=== PATIENT | female | born 1985 | race Caucasian/White ===

== ENCOUNTER 2016-05-13 16:32 | Emergency (ER) | payer SELFPAY ==
--- NOTE | 2016-05-13 16:36 | ER Document Report ---
ED Medical Screen (RME) - General Stated Complaint: TOOTH PAIN Mode of Arrival: Ambulatory Information source: Patient Notes: pt c/o dental pain for past few weeks. Pt c/o continued dental pain. TRAVEL OUTSIDE OF THE U.S. IN LAST 30 DAYS: No - Related Data Allergies/Adverse Reactions: No Known Allergies Allergy (Verified 04/06/16 13:32) Past Medical History Renal/ Medical History: Reports: Hx Ovarian Cysts Skin Medical History: Reports Hx MRSA Psychiatric Medical History: Reports: Hx Bipolar Disorder, Hx Depression - Immunizations Hx Diphtheria, Pertussis, Tetanus Vaccination: Yes - 2009 Physical Exam - General General appearance: Appears well, Alert In distress: None
--- NOTE | 2016-05-13 17:29 | ER Document Report ---
ED Oral Problem - General Chief Complaint: Toothache Stated Complaint: TOOTH PAIN Mode of Arrival: Ambulatory Information source: Patient Notes: 31 y/o F presents to ED c/o left upper posterior dental pain over the last 3 days. Reports has decayed tooth that has intemittently caused her pain over the last year but has worsened recently. States has been seen in the Emergency Department for similar symptoms in the past but has not been able to follow-up with dental provider. Denies fever, swelling, drainage, difficulty breathing or swallowing. TRAVEL OUTSIDE OF THE U.S. IN LAST 30 DAYS: No - HPI Patient complains to provider of: Toothache Onset: Gradual Quality of pain: Achy Severity: Moderate Pain Level: 3 Associated symptoms: Dental decay, Toothache Similar symptoms previously: Yes Recently seen / treated by doctor/dentist: No - Related Data Allergies/Adverse Reactions: No Known Allergies Allergy (Verified 04/06/16 13:32) Past Medical History - General Information source: Patient - Social History Smoking Status: Current Every Day Smoker Cigarette use (# per day): Yes Chew tobacco use (# tins/day): No Frequency of alcohol use: None Drug Abuse: None Lives with: Family Family History: Arthritis, DM, Hypertension, Malignancy Patient has suicidal ideation: No Patient has homicidal ideation: No Renal/ Medical History: Reports: Hx Ovarian Cysts Skin Medical History: Reports Hx MRSA Psychiatric Medical History: Reports: Hx Bipolar Disorder, Hx Depression Surgical Hx: Negative - Immunizations Hx Diphtheria, Pertussis, Tetanus Vaccination: Yes - 2009 Review of Systems - Review of Systems Constitutional: No symptoms reported EENT: See HPI Cardiovascular: No symptoms reported Respiratory: No symptoms reported Gastrointestinal: No symptoms reported Genitourinary: No symptoms reported Female Genitourinary: No symptoms reported Musculoskeletal: No symptoms reported Skin: No symptoms reported Hematologic/Lymphatic: No symptoms reported Neurological/Psychological: No symptoms reported -: Yes All other systems reviewed and negative Physical Exam - Vital signs Vitals: Temp Pulse Resp BP Pulse Ox 98.7 F 73 21 H 122/95 H 98 05/13/16 16:35 05/13/16 16:35 05/13/16 16:35 05/13/16 16:35 05/13/16 16:35 Interpretation: Normal - General General appearance: Appears well, Alert In distress: None - HEENT Head: Normocephalic, Atraumatic Eyes: Normal Extraocular movements intact: Yes Eyelashes: Normal Pupils: PERRL Ears: Normal External canal: Normal Tympanic membrane: Normal Sinus: Normal Nasal: Normal Mouth/Lips: Caries. No: Normal, Angioedema, Dental fracture, Laceration, Lesions, Other Mucous membranes: Normal, Moist Teeth diagram: 1 - Moderate dental decay, localized tenderness to palpation and mild localized swelling without fluctuance or drainage. Pharynx: Normal. No: Blood in hypopharynx, Erythema, Exudate, Peritonsillar abscess, Post nasal drainage, Retropharyngeal abscess, Tonsillar hypertrophy, Uvular edema, Potential airway comprom., Other Neck: Normal. No: Anterior cervical chain, Posterior cervical chain, Lymphadenopathy, Meningismus, Subcutaneous emphysema - Respiratory Respiratory status: No respiratory distress Chest status: Nontender Breath sounds: Normal Chest palpation: Normal - Cardiovascular Rhythm: Regular Heart sounds: Normal auscultation Murmur: No Pulses: Normal: Radial Normal capillary refill: Yes - Neurological Neuro grossly intact: Yes Cognition: Normal Orientation: AAOx4 [place] Coma Scale Eye Opening: Spontaneous [place] Coma Scale Verbal: Oriented [place] Coma Scale Motor: Obeys Commands [place] Coma Scale Total: 15 Speech: Normal - Psychological Associated symptoms: Normal affect, Normal mood - Skin Skin Temperature: Warm Skin Moisture: Dry Skin Color: Normal Course - Re-evaluation Re-evalutation: 05/13/16 17:30 Patient hemodynamically stable, in no distress, afebrile. No abscess, trismus, Ludwigs angina, or suggestion of significant soft tissue or deep space infection at this time. Will give short course clindamycin as patient states has taken penicillin in the past for similar episodes without improvement. Patient appears stable for discharge and agrees with home care, follow-up with dental provider, and ED return precautions - Vital Signs Vital signs: Temp Pulse Resp BP Pulse Ox 98.5 F 87 20 150/85 H 97 05/13/16 17:05 05/13/16 17:05 05/13/16 17:05 05/13/16 17:05 05/13/16 17:05 Discharge - Discharge Clinical Impression: Pain, dental Condition: Stable Disposition: HOME, SELF-CARE Additional Instructions: TOOTHACHE: Your pain is due to dental decay. The tooth must be repaired in order for you to feel better. You will, therefore, be referred to a dentist. We do not have dentists on the staff at [facility]. Severe swelling or drainage around a tooth usually means a dental abscess. This also requires evaluation and treatment by the dentist, but antibiotics may be prescribed while awaiting dental treatment. You should be rechecked immediately if you develop major swelling of the face, increasing pain, a lump in the jaw or gums, headache, difficulty swallowing, or fever. Ultram Ultram is an excellent drug for pain relief. It is not a narcotic, but it works in a similar way. Ultram can take up to two hours for full effect. Although not addicting, Ultram is best avoided in patients with a history of drug abuse. Ultram should not be used with alcohol, sleeping pills, or narcotics. If you're prone to seizures, Ultram can make you more likely to have a seizure. Ultram can be hazardous when combined with MAO-inhibitor antidepressants (such as Nardil or Parnate). Be sure your doctor is aware of all medicines you are taking. Persons with severe liver or kidney disease should increase the time between doses of Ultram. Discuss this with your doctor if you're uncertain. Side effects of Ultram can include dizziness, nausea, constipation, sleepiness, and itching. (These side effects are also seen with narcotic pain medicines.) Please call your doctor if you have other disturbing effects. CLINDAMYCIN: You have been given a prescription for the antibiotic clindamycin. It is often prescribed for infections in the mouth, such as dental infections or abscesses, and for skin infections due to MRSA. It's important that you take all the medication, unless instructed otherwise by your physician. Failure to complete the entire course can result in relapse of your condition. Common side effects of antibiotics include nausea, intestinal cramping, or diarrhea. Women may develop vaginal yeast infections, and babies can get yeast (thrush) in the mouth following the use of antibiotics. Contact your physician if you develop significant side effects from this medication. Allergy to this antibiotic can result in hives, wheezing, faintness, or itching. If symptoms of allergy occur, stop the medication and call the doctor. FOLLOW-UP CARE: You have been referred for follow-up care to the dentists listed below. Call the dentists office for an appointment as you were instructed or within the next two days. If you experience worsening or a significant change in your symptoms, notify the physician immediately or return to the Emergency Department at any time for re-evaluation. [facility] [address] [place], [place] mornings, by appointment [facility] [address] [place] [address] [facility] [address] [facility] [address] [facility] (4th[facility] [address] [facility] [email or web address] [facility] [address] [place] [address] Sunday- 8:00am to 5:00 pm Will see patients from other [facility]. Charges based on income and family size and accepts Medicare, Medicaid, and Insurances Will pull molars [facility] [address] Hours of Operation 8:00 am - 4:30 pm weekdays The following dental offices accept Medicaid: [facility] Dr. Hernandez Dr. Walker Dr. Antunez Dr. Her Rustam Jameson [place], and B[place] oral surgery Dr. Verduzco ([place]) Dr. Sal ([place]) [facility] Drs. Barrientos and Brennan ([place]) Dr. Whitehead ([place]) [facility] Dr. Crespo ([place]) Drs. Hoyt and ([place]) Medicaid Care Line Prescriptions: Tramadol HCl [Ultram] 50 mg PO Q8HP PRN #10 tablet PRN Reason: Clindamycin HCl 300 mg PO Q6H #20 capsule Forms: Elevated Blood Pressure
[2016-05-13 17:43] VITALS: BP 120/69
== END 2016-05-13 17:41 | disposition home or self-care (01) ==
LOC: ER 16:32
DX: K08.89 Other specified disorders of teeth and supporting structures (principal); F17.210 Nicotine dependence, cigarettes, uncomplicated
CPT/HCPCS: 99282

== ENCOUNTER 2016-07-06 22:58 | Emergency (ER) | payer SELFPAY ==
--- NOTE | 2016-07-07 02:48 | ER Document Report ---
HPI - HPI Patient complains to provider of: left thigh pain Onset: This morning Onset/Duration: Gradual Quality of pain: Achy Pain Level: 3 Context: Patient presents emergency department with complaints of left thigh pain. She reports she was sitting at her computer smoking a bowl this morning when her thigh started hurting. She went to school and gradually the thigh pain got worse so she came to the ER tonight. She denies history of DVTs PE. Negative Homans no obvious signs of blood clot. Patient ambulates without problems. Denies fever vomiting diarrhea. Associated Symptoms: None Exacerbated by: Denies Relieved by: Denies Similar symptoms previously: No Recently seen / treated by doctor: No - REPRODUCTIVE LMP: na Reproductive: DENIES: : - DERM Skin Color: Normal Past Medical History - General Information source: Patient Last Menstrual Period: irr. pcos - Social History Smoking Status: Current Every Day Smoker Cigarette use (# per day): Yes Chew tobacco use (# tins/day): No Frequency of alcohol use: Occasional Drug Abuse: Marijuana Occupation: student Family History: Arthritis, DM, Hypertension, Malignancy Patient has suicidal ideation: No Patient has homicidal ideation: No Renal/ Medical History: Reports: Hx Ovarian Cysts. Denies: Hx Peritoneal Dialysis Skin Medical History: Reports Hx MRSA Psychiatric Medical History: Reports: Hx Bipolar Disorder, Hx Depression - Immunizations Hx Diphtheria, Pertussis, Tetanus Vaccination: Yes - 2009 Vertical Provider Document - CONSTITUTIONAL Agree With Documented VS: Yes Exam Limitations: No Limitations General Appearance: WD/WN, No Apparent Distress - INFECTION CONTROL TRAVEL OUTSIDE OF THE U.S. IN LAST 30 DAYS: No - HEENT HEENT: Atraumatic, Normocephalic - NECK Neck: Normal Inspection, Supple - RESPIRATORY Respiratory: Breath Sounds Normal, No Respiratory Distress O2 Sat by Pulse Oximetry: 97 - CARDIOVASCULAR Cardiovascular: Regular Rate - MUSCULOSKELETAL/EXTREMETIES Musculoskeletal/Extremeties: MAEW, FROM, Non-Tender - reports pain to the inner left thigh, no erythema no swelling or warmth nausea no obvious deformity, neg. homans - NEURO Level of Consciousness: Awake, Alert, Appropriate Motor/Sensory: No Motor Deficit - DERM Integumentary: Warm, Dry Adult Front & Back Diagram: 1 - c/o tenderness Course - Re-evaluation Re-evalutation: 07/07/16 03:07 She was educated on signs and symptoms of DVT. Patient instructed to take ibuprofen follow up with primary care provider return to the emergency department for further worries or concerns. - Vital Signs Vital signs: Temp Pulse Resp BP Pulse Ox 97.8 F 73 14 135/84 H 97 07/06/16 23:05 07/06/16 23:05 07/06/16 23:05 07/06/16 23:05 07/06/16 23:05 Discharge - Discharge Clinical Impression: Pain in left thigh, Elevated blood pressure reading Condition: Stable Disposition: HOME, SELF-CARE Instructions: Use of [id number]-Ifecbga Ibuprofen ([facility]) Additional Instructions: *You have been evaluated for left thigh pain *Rest/Ice/Elevate *Follow up with a primary care provider for recheck within one week *Take ibuprofen as indicated *Monitor your blood pressure. Your blood pressure was elevated today. This may be because you were anxious, in pain or because you need medication. It is important to follow up with your primary care provider for full evaluation. *Return to ED for worsening condition, changes, needs Forms: Elevated Blood Pressure
[2016-07-07 03:20] VITALS: BP 108/70
== END 2016-07-07 03:25 | disposition home or self-care (01) ==
LOC: ER 22:58
DX: M79.652 Pain in left thigh (principal); R03.0 Elevated blood-pressure reading, without diagnosis of hypertension; F17.210 Nicotine dependence, cigarettes, uncomplicated; Z86.14 Personal history of Methicillin resistant Staphylococcus aureus infection
CPT/HCPCS: 99283

== ENCOUNTER 2016-12-18 18:41 | Emergency (ER) | payer SELFPAY ==
[2016-12-18] MEDS ORDERED: PENICILLIN V POTASSIUM 500 MG TABLET PO ONE (21:33)
[2016-12-18] MEDS ORDERED: LIDOCAINE 2% VISCOUS SOLN 20 ML UDCUP PO ONE (21:33)
--- NOTE | 2016-12-18 21:39 | ER Document Report ---
ED Oral Problem - General Chief Complaint: Toothache Stated Complaint: MOUTH PAIN Time Seen by Provider: 12/18/16 20:03 Mode of Arrival: Ambulatory Information source: Patient Notes: 31-year-old female presents to ED for complaint of pain in the left upper tooth #13 when she also complains of pain in her left knee that she has been treating since she injured it about a month ago. TRAVEL OUTSIDE OF THE [place].S. IN LAST 30 DAYS: No - HPI Patient complains to provider of: Toothache Onset: Other - Was a week ago knee injury was a month ago Onset: Gradual Quality of pain: Sharp Severity: Moderate Pain Level: 3 Context: Other - Tooth infection Associated symptoms: Toothache, Other - The left knee that she injured about a month ago, no signs of infection wound is healing well Worsened by: Nothing Relieved by: Nothing Similar symptoms previously: Yes Recently seen / treated by doctor/dentist: No - Related Data Allergies/Adverse Reactions: No Known Allergies Allergy (Verified 04/06/16 13:32) Past Medical History - General Information source: Patient - Social History Smoking Status: Current Every Day Smoker Cigarette use (# per day): Yes Chew tobacco use (# tins/day): No Frequency of alcohol use: Social Drug Abuse: None Lives with: Family Family History: Arthritis, DM, Hypertension, Malignancy Patient has suicidal ideation: No Patient has homicidal ideation: No - Past Medical History Cardiac Medical History: Reports: None Pulmonary Medical History: Reports: None EENT Medical History: Reports: None Neurological Medical History: Reports: None Endocrine Medical History: Reports: None Renal/ Medical History: Reports: Hx Ovarian Cysts Malignancy Medical History: Reports: None GI Medical History: Reports: None Musculoskeltal Medical History: Reports None Skin Medical History: Reports Hx MRSA Psychiatric Medical History: Reports: Hx Bipolar Disorder, Hx Depression Traumatic Medical History: Reports: None Infectious Medical History: Reports: None Surgical Hx: Negative Past Surgical History: Reports: None - Immunizations Hx Diphtheria, Pertussis, Tetanus Vaccination: Yes - 2009 Review of Systems - Review of Systems Constitutional: No symptoms reported EENT: Dental problem Cardiovascular: No symptoms reported Respiratory: No symptoms reported Gastrointestinal: No symptoms reported Genitourinary: No symptoms reported Female Genitourinary: No symptoms reported Musculoskeletal: No symptoms reported Skin: Other - P2 left knee that has a open wound that she has been treating for about a month. She states she has been using bacitracin. She states she fell and injured this knee on the gravel outside she did not follow-up with her primary doctor and has been self treating the knee looks to be healing on its own does not need any new care. There is no signs of infection no cellulitis. Hematologic/Lymphatic: No symptoms reported Neurological/Psychological: No symptoms reported Physical Exam - Vital signs Vitals: Temp Pulse Resp BP Pulse Ox 98.2 F 89 16 127/72 H 97 12/18/16 18:46 12/18/16 18:46 12/18/16 18:46 12/18/16 18:46 12/18/16 18:46 Interpretation: Normal - General General appearance: Appears well, Alert - HEENT Head: Normocephalic, Atraumatic Eyes: Normal Pupils: PERRL Ears: Normal External canal: Normal Tympanic membrane: Normal Sinus: Normal Nasal: Normal Mouth/Lips: Caries Mucous membranes: Normal Teeth diagram: 1 - In between the 2 teeth. Mild swelling and redness to the gums. No facial swelling Pharynx: Normal Neck: Normal - Respiratory Respiratory status: No respiratory distress Chest status: Nontender Breath sounds: Normal Chest palpation: Normal - Cardiovascular Rhythm: Regular Heart sounds: Normal auscultation Murmur: No - Abdominal Inspection: Normal Distension: No distension Bowel sounds: Normal Tenderness: Nontender Organomegaly: No organomegaly - Back Back: Normal, Nontender - Extremities General upper extremity: Normal inspection, Nontender, Normal color, Normal ROM , Normal temperature General lower extremity: Normal color, Normal ROM, Normal temperature, Normal weight bearing. No: Osman's sign Knee: Tender, Laceration - A healing laceration to her left knee that she has been treating at home. She states she fell on gravel. There is no redness there is no drainage there is no signs of infection no signs of cellulitis., Pain with ROM - Neurological Neuro grossly intact: Yes Cognition: Normal Orientation: AAOx4 [place] Coma Scale Eye Opening: Spontaneous [place] Coma Scale Verbal: Oriented [place] Coma Scale Motor: Obeys Commands [place] Coma Scale Total: 15 Speech: Normal Motor strength normal: LUE, RUE, LLE, RLE Sensory: Normal - Psychological Associated symptoms: Normal affect, Normal mood - Skin Skin Temperature: Warm Skin Moisture: Dry Skin Color: Normal Course - Vital Signs Vital signs: Temp Pulse Resp BP Pulse Ox 98.7 F 78 15 97/78 L 98 12/18/16 21:44 12/18/16 21:44 12/18/16 21:44 12/18/16 21:44 12/18/16 21:44 Discharge - Discharge Clinical Impression: Pain due to dental caries Condition: Stable Disposition: HOME, SELF-CARE Additional Instructions: TOOTHACHE: Your pain is due to dental decay. The tooth must be repaired in order for you to feel better. You will, therefore, be referred to a dentist. We do not have dentists on the staff at [facility]. Severe swelling or drainage around a tooth usually means a dental abscess. This also requires evaluation and treatment by the dentist, but antibiotics may be prescribed while awaiting dental treatment. You should be rechecked immediately if you develop major swelling of the face, increasing pain, a lump in the jaw or gums, headache, difficulty swallowing, or fever. PENICILLIN V K: You have been given a prescription for Penicillin VK. Your physician has determined that this is the best antibiotic for your condition. Pen VK can be taken with meals, however more of the antibiotic gets into the bloodstream if it's taken on an empty stomach. Penicillin usually has no side effects. However, allergy to penicillins is common. If you have had an allergic reaction to any drug of the penicillin family, you should never take any other penicillin. Notify your doctor at once if you develop hives, itching, swelling, faintness, or shortness of breath. FOLLOW-UP CARE: You have been referred for follow-up care to the dentists listed below. Call the dentists office for an appointment as you were instructed or within the next two days. If you experience worsening or a significant change in your symptoms, notify the physician immediately or return to the Emergency Department at any time for re-evaluation. [facility] [address] Sunday mornings, by appointment [facility] [address] [place] [address] [facility] [address] [facility] [address] [facility] [address] [email or web address] [address] [place] [address] Sunday- 8:00am to 5:00 pm Will see patients from other [facility]. Charges based on income and family size and accepts Medicare, Medicaid, and Insurances Will pull molars [facility] [address] Hours of Operation 8:00 am - 4:30 pm weekdays The following dental offices accept Medicaid: [facility] Dr. Hernandez Dr. Walker Dr. Antunez Dr. Her Rustam Jameson, Supriya, and Bijan oral surgery Dr. Verduzco ([place]) Dr. Sal ([place]) [facility] Drs. Urbina ([place]) Dr. Whitehead ([place]) [facility] Dr. Crespo ([place]) Drs. Hoyt and ([place]) Medicaid Care Line Prescriptions: Fluconazole [Diflucan] 150 mg PO ONCE PRN #1 tablet PRN Reason: Penicillin V Potassium 500 mg PO Q6 #20 tablet Forms: Elevated Blood Pressure
[2016-12-18 21:45] VITALS: BP 97/78
== END 2016-12-18 21:45 | disposition home or self-care (01) ==
LOC: ER 18:41
DX: K02.9 Dental caries, unspecified (principal); K08.89 Other specified disorders of teeth and supporting structures; M25.562 Pain in left knee; F17.210 Nicotine dependence, cigarettes, uncomplicated
CPT/HCPCS: 99282; J3490

== ENCOUNTER 2017-01-14 12:46 | Emergency (ER) | payer SELFPAY ==
--- NOTE | 2017-01-14 14:05 | ER Document Report ---
ED Oral Problem - General Chief Complaint: Toothache Stated Complaint: TOOTHACHE Time Seen by Provider: 01/14/17 13:57 Notes: 31 yo female c/o pain to left upper tooth x 1 day. pt was seen in ED about 3wks ago for same tooth pain. treated with pcn which did help until today when the pain returned while she was eating breakfast. pt has not followed up with dental due to lack of insurance. no fever TRAVEL OUTSIDE OF THE [place] IN LAST 30 DAYS: No - HPI Patient complains to provider of: Toothache Onset: This morning Quality of pain: Achy, Sharp Associated symptoms: Toothache Worsened by: Other - eating Relieved by: Nothing Similar symptoms previously: Yes Recently seen / treated by doctor/dentist: Yes - 3 wks ago be ED - Related Data Allergies/Adverse Reactions: No Known Allergies Allergy (Verified 01/14/17 12:49) Past Medical History - General Information source: Patient - Social History Smoking Status: Current Every Day Smoker Chew tobacco use (# tins/day): No Frequency of alcohol use: Occasional Drug Abuse: None Lives with: Family Family History: Arthritis, DM, Hypertension, Malignancy Renal/ Medical History: Reports: Hx Ovarian Cysts. Denies: Hx Peritoneal Dialysis Skin Medical History: Reports Hx MRSA Psychiatric Medical History: Reports: Hx Bipolar Disorder, Hx Depression Surgical Hx: Negative - Immunizations Hx Diphtheria, Pertussis, Tetanus Vaccination: Yes - 2009 Review of Systems - Review of Systems Constitutional: No symptoms reported EENT: See HPI Cardiovascular: No symptoms reported Respiratory: No symptoms reported Gastrointestinal: No symptoms reported Genitourinary: No symptoms reported Female Genitourinary: No symptoms reported Musculoskeletal: No symptoms reported Skin: No symptoms reported Hematologic/Lymphatic: No symptoms reported Neurological/Psychological: No symptoms reported Physical Exam - Vital signs Vitals: Temp Pulse Resp BP Pulse Ox 98.1 F 87 16 129/66 H 98 01/14/17 12:50 01/14/17 12:50 01/14/17 12:50 01/14/17 12:50 01/14/17 12:50 Interpretation: Normal - General General appearance: Appears well, Alert - HEENT Head: Normocephalic, Atraumatic Eyes: Normal Pupils: PERRL Mucous membranes: Moist Teeth diagram: 1 - pain. capped tooth. + erythema and mild gingival edema noted - Respiratory Respiratory status: No respiratory distress Chest status: Nontender Breath sounds: Normal Chest palpation: Normal - Cardiovascular Rhythm: Regular Heart sounds: Normal auscultation Murmur: No - Abdominal Inspection: Normal Distension: No distension Bowel sounds: Normal Tenderness: Nontender Organomegaly: No organomegaly - Back Back: Normal, Nontender - Extremities General upper extremity: Normal inspection, Nontender, Normal color, Normal ROM , Normal temperature General lower extremity: Normal inspection, Nontender, Normal color, Normal ROM , Normal temperature, Normal weight bearing. No: Osman's sign - Neurological Neuro grossly intact: Yes Cognition: Normal Orientation: AAOx4 Otto Coma Scale Eye Opening: Spontaneous [place] Coma Scale Verbal: Oriented Otto Coma Scale Motor: Obeys Commands Columbia Coma Scale Total: 15 Speech: Normal Motor strength normal: LUE, RUE, LLE, RLE Sensory: Normal - Psychological Associated symptoms: Normal affect, Normal mood - Skin Skin Temperature: Warm Skin Moisture: Dry Skin Color: Normal Course - Re-evaluation Re-evalutation: 01/14/17 14:08 no signs of ludwigs or peritonsillar abscess. no airway compromise. no s/s sepsis. pt stable for discharge - Vital Signs Vital signs: Temp Pulse Resp BP Pulse Ox 98.1 F 87 16 129/66 H 98 01/14/17 12:50 01/14/17 12:50 01/14/17 12:50 01/14/17 12:50 01/14/17 12:50 Discharge - Discharge Clinical Impression: Pain, dental Condition: Stable Disposition: HOME, SELF-CARE Instructions: Toothache ([facility]), Antibiotic Therapy ([facility]), Ibuprofen (General) ( [facility]) Additional Instructions: Please take all medication as prescribed Follow up with dental for further evaluation and treatment Prescriptions: Amoxicillin 500 mg PO TID #21 tablet Ibuprofen [Motrin 800 Mg Tablet] 800 mg PO Q6H #20 tablet
[2017-01-14 14:29] VITALS: BP 120/67
== END 2017-01-14 14:32 | disposition home or self-care (01) ==
LOC: ER 12:46
DX: K08.9 Disorder of teeth and supporting structures, unspecified (principal); F17.200 Nicotine dependence, unspecified, uncomplicated; Z86.14 Personal history of Methicillin resistant Staphylococcus aureus infection
CPT/HCPCS: 99282

== ENCOUNTER 2017-06-19 18:57 | Emergency (ER) | payer SELFPAY ==
[2017-06-19] MEDS ORDERED: ALBUTEROL SULFATE HFA (90 MCG/PUFF) 8 GM MDI (1 MDI/ER DISP) IH ONE (19:38)
[2017-06-19] MEDS ORDERED: PREDNISONE 20 MG TABLET PO ONE (19:38)
[2017-06-19] MEDS ORDERED: AZITHROMYCIN 250 MG TABLET PO ONE (19:38)
[2017-06-19 19:45] VITALS: BP 127/67
--- NOTE | 2017-06-19 19:45 | ER Document Report ---
HPI - HPI Patient complains to provider of: cough, congestion Pain Level: 2 Context: Patient is a 32-year-old female that comes emergency department for chief complaint of 2 weeks of worsening symptoms, symptoms initially started with congestion and runny nose with postnasal drainage, she is worse now and now is coughing up clearish to whitish and brown sputum with coughing fits. She denies fever or chills, shortness of breath. She smokes. She does admit to sinus tenderness. She denies nausea or vomiting, abdominal pain, dizziness. She takes no daily medications. She denies . - EENT EENT: DENIES: Sore Throat, Ear Pain, Eye problems - CARDIOVASCULAR Cardiovascular: DENIES: Chest pain - RESPIRATORY Respiratory: REPORTS: Coughing - REPRODUCTIVE Reproductive: DENIES: : Past Medical History - General Information source: Patient - Social History Smoking Status: Current Every Day Smoker Smoking Education Provided: Yes - <3 min Drug Abuse: None Lives with: Family Family History: Arthritis, DM, Hypertension, Malignancy Patient has suicidal ideation: No Patient has homicidal ideation: No Renal/ Medical History: Reports: Hx Ovarian Cysts. Denies: Hx Peritoneal Dialysis Skin Medical History: Reports Hx MRSA Psychiatric Medical History: Reports: Hx Bipolar Disorder, Hx Depression Surgical Hx: Negative - Immunizations Hx Diphtheria, Pertussis, Tetanus Vaccination: Yes - 2009 Vertical Provider Document - CONSTITUTIONAL General Appearance: WD/WN, No Apparent Distress - INFECTION CONTROL TRAVEL OUTSIDE OF THE [place] IN LAST 30 DAYS: No - HEENT HEENT: negative: Normal ENT Exam - Mild sinus congestion, nasal congestion, tenderness over maxillary sinuses worse on the right, mild postnasal drainage with erythema of the pharynx, no swelling of the pharynx with significant oropharyngeal findings. Normal ENT exam otherwise. - NECK Neck: Normal Inspection. negative: Lymphadenopathy-Left, Lymphadenopathy-Right - RESPIRATORY Respiratory: Breath Sounds Normal, No Respiratory Distress, Other - Mild occasional congested cough, no tachypnea, labored breathing, or signs of distress O2 Sat by Pulse Oximetry: 98 - CARDIOVASCULAR Cardiovascular: Regular Rate, Regular Rhythm. negative: Tachycardia - No tachycardia on my exam - GI/ABDOMEN Gastrointestinal: Abdomen Soft, Abdomen Non-Tender - BACK Back: Normal Inspection - MUSCULOSKELETAL/EXTREMETIES Musculoskeletal/Extremeties: MAEW, FROM, Non-Tender - NEURO Level of Consciousness: Awake, Alert, Appropriate - DERM Integumentary: Warm, Dry, No Rash Course - Re-evaluation Re-evalutation: Patient with tender sinuses, congested cough, 2 weeks of illness. Consistent with bronchitis on examination and by symptoms. Treating patient for sinusitis , will provide with azithromycin to prevent development of pneumonia after discussion with patient. Discussed smoking cessation, patient will be treated with prednisone, Tessalon, albuterol, discussed follow-up and return precautions , patient states understanding and agreement. Pulse oxygen saturation 97% on room air and heart rate is 98 on my evaluation at discharge. - Vital Signs Vital signs: Temp Pulse Resp BP Pulse Ox 98.2 F 109 H 18 137/87 H 98 06/19/17 19:29 06/19/17 19:29 06/19/17 19:29 06/19/17 19:29 06/19/17 19:29 Discharge - Discharge Clinical Impression: Cough Upper respiratory infection Qualifiers: URI type: unspecified URI Qualified Code(s): J06.9 - Acute upper respiratory infection, unspecified Sinusitis Qualifiers: Sinusitis location: maxillary Chronicity: acute Recurrence: non-recurrent Qualified Code(s): J01.00 - Acute maxillary sinusitis, unspecified Condition: Stable Disposition: HOME, SELF-CARE Additional Instructions: Your examination and symptoms are consistent with bronchitis and sinusitis. Take prednisone and azithromycin as prescribed. Take Tessalon for cough, continue Tylenol PM, you can continue Mucinex. Drink plenty of fluids. Stop smoking. Use albuterol inhaler provided if needed. Your symptoms should gradually subside. Follow-up with primary care. Return if you worsen including difficulty breathing, spiking fever, vomiting, or any other concerning or worsening symptoms. Prescriptions: Benzonatate [Tessalon Perles 100 mg Capsule] 100 mg PO Q8HP PRN #20 capsule PRN Reason: Azithromycin [Zithromax 250 mg Tablet] 250 mg PO ASDIR PRN #4 tablet PRN Reason: Prednisone [Deltasone 10 mg Tablet] 10 mg PO ASDIR PRN #21 tablet PRN Reason: Forms: Smoking Cessation Education
== END 2017-06-19 19:52 | disposition home or self-care (01) ==
LOC: ER 18:57
DX: J06.9 Acute upper respiratory infection, unspecified (principal); J01.00 Acute maxillary sinusitis, unspecified; R05 Cough; R09.82 Postnasal drip; R09.81 Nasal congestion; F17.200 Nicotine dependence, unspecified, uncomplicated; Z71.6 Tobacco abuse counseling; Z86.14 Personal history of Methicillin resistant Staphylococcus aureus infection
CPT/HCPCS: 99283; J7512; J3490

== ENCOUNTER 2017-06-28 09:07 | Emergency (ER) | payer SELFPAY ==
[2017-06-28] MEDS ORDERED: NORMAL SALINE 1000 ML 1,000 ML IV ONE (10:01)
--- NOTE | 2017-06-28 10:02 | ER Document Report ---
HPI - HPI Patient complains to provider of: muscle pain Pain Level: 3 Notes: 32-year-old female presents today with complaints of bilateral thigh pain that started approximately 3 days ago with a gradual onset. States pain is 4 out of 10, cramping sensation. Patient states she feels like it is muscle pain and cramping. States she feels a numbness or tingling bilaterally to her inner thighs. Denies that this pain does radiate from her back denies any radiation of numbness or tingling down her legs. Reports she was diagnosed last week with bronchitis, was placed on a Z-Jonathan, Tessalon Perles, prednisone tapering pack, Ventolin and she took Benadryl because she was having issues sleeping. She finished his medications approximately 3 days ago. Patient states she started having the myalgias then. Patient also speculates that she has fibromyalgia, states she has never been clinically diagnosed for this because she does not have health insurance at this present time. Patient states that she has had numbness and tingling in different parts of her body for the last couple years, so she has never been evaluated formally for fibromyalgia she thinks this may be the cause of her inner thigh myalgias. Patient reports she does have a history of lower back pain, stated this was from her PCO S. Patient does smoke a pack a day for last 10 year. Patient stated she did have a few vodka drinks yesterday but does not commonly drink. Denies any trauma to thighs. Denies fevers, chills, chest pain, shortness of breath, nausea, vomiting, diarrhea, abdominal pain, hematuria,blurred vision, double vision, loss of vision, speech changes, LH, dizziness, syncope, headaches, neck pain, weakness, bowel or bladder dysfunction, saddle anesthesia, numbness/tingling/ muscle paralysis/weakness or rash - ROS Notes: REVIEW OF SYSTEMS: CONSTITUTIONAL : Denies fever, chills, or sweats. Denies recent illness. EENT: Denies eye, ear, throat, or mouth pain or symptoms. Denies nasal or sinus congestion or discharge. Denies throat, tongue, or mouth swelling or difficulty swallowing. CARDIOVASCULAR: Denies chest pain. Denies palpitations or racing or irregular heart beat. Denies ankle edema. RESPIRATORY: Denies cough, cold, or chest congestion. Denies shortness of breath, difficulty breathing, or wheezing. GASTROINTESTINAL: Denies abdominal pain or distention. Denies nausea, vomiting , or diarrhea. Denies blood in vomitus, stools, or per rectum. Denies black, tarry stools. Denies constipation. GENITOURINARY: Denies difficulty urinating, painful urination, burning, frequency, blood in urine, or discharge. FEMALE GENITOURINARY: Denies vaginal bleeding, heavy or abnormal periods, irregular periods. Denies vaginal discharge or odor. MUSCULOSKELETAL: Denies back or neck pain or stiffness. Denies joint pain or swelling. r reports inner thigh muscle aches. SKIN: Denies rash, lesions or sores. HEMATOLOGIC : Denies easy bruising or bleeding. LYMPHATIC: Denies swollen, enlarged glands. NEUROLOGICAL: Denies confusion or altered mental status. Denies passing out or loss of consciousness. Denies dizziness or lightheadedness. Denies headache. Denies weakness or paralysis or loss of use of either side. Denies problems with gait or speech. Denies sensory loss, numbness, or tingling. Denies seizures. PSYCHIATRIC: Denies anxiety or stress. Denies depression, suicidal ideation, or homicidal ideation. ALL OTHER SYSTEMS REVIEWED AND NEGATIVE. Dictation was performed using [employer] voice recognition software - REPRODUCTIVE Reproductive: DENIES: : Past Medical History - General Information source: Patient - Social History Smoking Status: Current Every Day Smoker Family History: Arthritis, DM, Hypertension, Malignancy Renal/ Medical History: Reports: Hx Ovarian Cysts. Denies: Hx Peritoneal Dialysis Skin Medical History: Reports Hx MRSA Psychiatric Medical History: Reports: Hx Bipolar Disorder, Hx Depression - Immunizations Hx Diphtheria, Pertussis, Tetanus Vaccination: Yes - 2009 Vertical Provider Document - CONSTITUTIONAL Agree With Documented VS: Yes Notes: PHYSICAL EXAMINATION: GENERAL: Well-appearing, well-nourished and in no acute distress. HEAD: Atraumatic, normocephalic. EYES: Pupils equal round and reactive to light, extraocular movements intact, conjunctiva are normal. ENT: Nares patent, oropharynx clear without exudates. Moist mucous membranes. NECK: Normal range of motion, supple without lymphadenopathy LUNGS: Breath sounds clear to auscultation bilaterally and equal. No wheezes rales or rhonchi. HEART: Regular rate and rhythm without murmurs ABDOMEN: Soft, nontender, nondistended abdomen. No guarding, no rebound. No masses appreciated. Female : deferred Musculoskeletal: Normal range of motion, no pitting or edema. No cyanosis. straight leg test negative. no pain with flexion, extension and external/ internal hip rotation, Normal hip rotation. DTR +2 in BLE equally. Normal motor and sensory function in BLE equally. Distal pulses + 2 BLE equally. No paraspinal tenderness in the lumbar spine. No spinal tenderness. No CVA tenderness bilaterally. Femoral pulses + 2 bilaterally and equally. No abrasions , scars, lacerations, ecchymosis of any recent trauma. Normal gait NEUROLOGICAL: Cranial nerves grossly intact. Normal speech, normal gait. Normal sensory, motor exams PSYCH: Normal mood, normal affect. SKIN: Warm, Dry, normal turgor, no rashes or lesions noted. - INFECTION CONTROL TRAVEL OUTSIDE OF THE [place] IN LAST 30 DAYS: No - RESPIRATORY O2 Sat by Pulse Oximetry: 97 Course - Re-evaluation Re-evalutation: Rechecked the patient who is resting comfortably. On re-exam, patient is symptomatically improved. Discussed the results of the labs/radiology as well as the diagnosis at great length. CBC negative for any acute leukocytosis, CK slightly elevated, no indication of rhabdomyolysis kidney function liver function within normal range. Urinalysis a couple lumbar x-ray negative for any acute findings per radiology. Patient given 1 bag of normal saline IV. Discussed with patient that laboratory and radiological findings are negative for any acute etiologies besides myalgia. Advised her to follow-up with her primary care provider, gave her referral for primary care. Patient states that she feels that this may be a fibromyalgia attack. Advised her to increase hydration, elevate, and discussed the need to return to the ER for any new or worsening sx. Patient understands to take the Rx as directed. All questions answered. Patient comfortable with the decision to go home. After performing a Medical Screening Examination, I estimate there is LOW risk for EXPANDING OR RUPTURED ABDOMINAL AORTIC ANEURYSM, CAUDA EQUINA SYNDROME, EPIDURAL MASS ABSCESS OR LESION(S), OSTEOMYELITIS, FRACTURE, rhabdomyolysis, CORD COMPERSSION, CANCER, RETROPERITONEAL BLEED, SPINAL EPIDURAL HEMATOMA, or HERNIATED DISK CAUSING SEVERE SPINAL STENOSIS, thus I consider the discharge disposition reasonable. I have reevaluated this patient multiple times and no significant life threatening changes are noted. The patient and I have discussed the diagnosis and risks, and we agree with discharging home and close follow-up. We also discussed returning to the Emergency Department immediately if new or worsening symptoms occur with the understanding that symptoms and presentations can change. We have discussed the symptoms which are most concerning (e.g., saddle anesthesia, urinary or bowel incontinence or retention , changing or worsening pain) that necessitate immediate return. - Vital Signs Vital signs: Temp Pulse Resp BP Pulse Ox 98.6 F 82 16 120/75 97 06/28/17 09:10 06/28/17 09:10 06/28/17 09:10 06/28/17 09:10 06/28/17 09:10 - Laboratory Result Diagrams: 06/28/17 10:20 06/28/17 10:55 Discharge - Discharge Clinical Impression: Thigh pain, musculoskeletal Qualifiers: Laterality: unspecified laterality Qualified Code(s): M79.606 - Pain in leg, unspecified Condition: Good Disposition: HOME, SELF-CARE Additional Instructions: Myalagia (Muscle Pain) Myalgia is pain in the muscles. We use the word myalgia to describe muscle pain where there's no history of injury, no known muscle disease, and the muscles are normal to examination. Myalgias can be a symptom of an acute illness , such as influenza, hepatitis, or any viral illness, especially with fever. Sometimes the muscle pain comes before any other symptoms. Myalgia can also be an early symptom of inflammatory muscle disease, such as lupus. If myalgia is accompanied by an acute illness that explains the muscle pain , then no further testing needs to be done. When there's no clear reason for the pain, tests may be done to see if there's an inflammatory or other disease of the muscles. The usual treatment for myalgias is anti-inflammatory medication, such as ibuprofen. Muscle aches may be soothed with a heating pad or hot compress. If muscles remain painful for more than a few days, you'll need testing and followup. Return if a muscle becomes swollen, red, or severely painful. Primary care referral as well as orthopedic referral given. Follow-up with both within 1 week. Increase hydration apply heat 20 minutes on 20 minutes off several times a day, massage area. Return to the emergency room if symptoms become worse. Return immediately for any new or worsening symptoms. Follow up with primary care provider, call tomorrow to make followup appointment. Referrals: ORLY ROCHA MD [ACTIVE STAFF] - Follow up in 1 week LONNIE MCCLOUD MD [ACTIVE STAFF] - Follow up in 1 week
[2017-06-28 10:39] LABS: ABSOLUTE BASOPHILS # (AUTO) 0.1 10^3/uL (0.0-0.2); ABSOLUTE EOSINOPHILS # (AUTO) 0.1 10^3/uL (0.0-0.6); ABSOLUTE LYMPHOCYTES (AUTO) 3.2 10^3/uL (0.5-4.7); ABSOLUTE MONOCYTES (AUTO) 0.7 10^3/uL (0.1-1.4); ABSOLUTE NEUT (AUTO) 7.1 10^3/uL (1.7-8.2); EOSINOPHILS % (AUTO) 1.3 % (0-6); HEMATOCRIT 42.3 % (36.0-47.0); LYMPHOCYTES % (AUTO) 28.7 % (13-45); MEAN CORPUSCULAR HEMOGLOBIN 32.1 pg (27.0-33.4); MEAN CORPUSCULAR HGB CONC 35.4 g/dL (32.0-36.0); MEAN CORPUSCULAR VOLUME 91 fl (80-97); MONOCYTES % (AUTO) 6.2 % (3-13); PLATELET COUNT 353 10^3/uL (150-450); RED BLOOD COUNT 4.66 10^6/uL (3.72-5.28); RED CELL DISTRIBUTION WIDTH 13.2 % (11.5-14.0); SEGMENTED NEUTROPHILS % (AUTO) 62.8 % (42-78); TOTAL CELLS COUNTED % (AUTO) 100 %; WHITE BLOOD COUNT 11.3 10^3/uL (4.0-10.5)
[2017-06-28 10:48] LABS: APPEARANCE,URINE CLEAR; BILIRUBIN,URINE NEGATIVE (NEGATIVE); COLOR,URINE YELLOW; GLUCOSE, URINE NEGATIVE (NEGATIVE); KETONES,URINE NEGATIVE (NEGATIVE); LEUKOCYTE ESTERASE,URINE NEGATIVE (NEGATIVE); NITRITE,URINE NEGATIVE (NEGATIVE); PROTEIN,URINE NEGATIVE (NEGATIVE); URINE SPECIFIC GRAVITY 1.012; UROBILINOGEN,URINE NEGATIVE mg/dL (<2.0)
[2017-06-28 11:30] LABS: ALANINE AMINOTRANSFERASE 42 U/L (9-52); ALBUMIN 3.5 g/dL (3.5-5.0); ALKALINE PHOSPHATASE 58 U/L (38-126); ANION GAP 6 (5-19); ASPARTATE AMINO TRANSFERASE 16 U/L (14-36); BILIRUBIN,DIRECT 0.3 mg/dL (0.0-0.4); BILIRUBIN,TOTAL 0.3 mg/dL (0.2-1.3); BLOOD UREA NITROGEN 13 mg/dL (7-20); C-REACTIVE PROTEIN 15.6 mg/L (<10.0); CALCIUM 9.2 mg/dL (8.4-10.2); CARBON DIOXIDE 24 mmol/L (22-30); CHLORIDE 107 mmol/L (98-107); CREATINE KINASE 68 U/L (30-135); GLUCOSE 95 mg/dL (75-110); POTASSIUM 4.3 mmol/L (3.6-5.0); SODIUM 137.1 mmol/L (137-145); TOTAL PROTEIN 6.2 g/dL (6.3-8.2)
--- NOTE | 2017-06-28 11:51 | RADIOLOGY REPORT (SQ) ---
EXAM DESCRIPTION: L SPINE WHOLE COMPLETED DATE/TIME: 06/28/2017 11:40 am REASON FOR STUDY: acute lumbar pain COMPARISON: None. NUMBER OF VIEWS: Five views including obliques. TECHNIQUE: AP, lateral, oblique, and sacral radiographic images acquired of the lumbar spine. LIMITATIONS: None. FINDINGS: MINERALIZATION: Normal. SEGMENTATION: Transitional vertebra ALIGNMENT: Normal. VERTEBRAE: Maintained height. No fracture or worrisome bone lesion. DISCS: Preserved height. No significant osteophytes or end plate irregularity. POSTERIOR ELEMENTS: Pedicles and facets are intact. No pars defect or posterior arch defects. HARDWARE: None in the spine. PARASPINAL SOFT TISSUES: Normal. PELVIS: Intact as visualized. No fractures or worrisome bone lesions. SI joints intact. OTHER: No other significant finding. IMPRESSION: Transitional vertebra. Study otherwise unremarkable. TECHNICAL DOCUMENTATION: JOB ID: [id number] [employer]- All Rights Reserved
[2017-06-28 12:48] VITALS: BP 117/77
== END 2017-06-28 12:47 | disposition home or self-care (01) ==
LOC: ER 09:07
DX: M79.652 Pain in left thigh (principal); M79.651 Pain in right thigh; M79.1 Myalgia; F17.200 Nicotine dependence, unspecified, uncomplicated; Z86.14 Personal history of Methicillin resistant Staphylococcus aureus infection
CPT/HCPCS: 99283; 96360; 36415; 87086; 82550; 85025; 81025; 86140; 80053; 81001; 72110; J7030

== ENCOUNTER 2017-09-25 20:36 | Emergency (ER) | payer SELFPAY ==
[2017-09-25 20:54] VITALS: BP 137/82
[2017-09-25] MEDS ORDERED: HYDROCODONE/ACETAMINOPHEN 5-325 MG (6 TAB/ER DISP) PO PRN (22:19)
--- NOTE | 2017-09-25 22:23 | ER Document Report ---
ED Headache - General Chief Complaint: Headache Stated Complaint: HEADACHE Time Seen by Provider: 09/25/17 21:49 Notes: Patient is a 32 year old female that comes to the ED for chief complaint of a headache. Headache has been present for a couple of weeks, patient states that she has been feeling it more frequently, she states it feels like a sharp pain that lasts about 10 seconds on the right side of her head, she denies any visual changes, she states the headache always resolves but when she gets the sharp pains frequently it is hard to sleep or focus. She denies neck pain or injury, fever or chills, she denies history of the same. She denies current headache. Past medical history of PCO S, denies any other medical history. TRAVEL OUTSIDE OF THE [place] IN LAST 30 DAYS: No - Related Data Allergies/Adverse Reactions: No Known Allergies Allergy (Verified 06/28/17 09:09) Past Medical History - General Information source: Patient - Social History Smoking Status: Current Every Day Smoker Smoking Education Provided: Yes - <3 min Frequency of alcohol use: Occasional Drug Abuse: None Lives with: Family Family History: Arthritis, DM, Hypertension, Malignancy Patient has suicidal ideation: No Patient has homicidal ideation: No Renal/ Medical History: Reports: Hx Ovarian Cysts. Denies: Hx Peritoneal Dialysis Skin Medical History: Reports Hx MRSA Psychiatric Medical History: Reports: Hx Bipolar Disorder, Hx Depression - Immunizations Hx Diphtheria, Pertussis, Tetanus Vaccination: Yes - 2009 Review of Systems - Review of Systems Constitutional: No symptoms reported EENT: See HPI Cardiovascular: No symptoms reported Respiratory: No symptoms reported Gastrointestinal: No symptoms reported Genitourinary: No symptoms reported Female Genitourinary: No symptoms reported Musculoskeletal: No symptoms reported Skin: No symptoms reported Hematologic/Lymphatic: No symptoms reported Neurological/Psychological: See HPI Physical Exam - Vital signs Vitals: Temp Pulse Resp BP Pulse Ox 98.3 F 82 20 137/82 H 98 09/25/17 20:52 09/25/17 20:52 09/25/17 20:52 09/25/17 20:52 09/25/17 20:52 - Notes Notes: GENERAL: Alert, interacts well. No acute distress. HEAD: Normocephalic, atraumatic. EYES: Pupils equal, round, and reactive to light. Extraocular movements intact. ENT: Oral mucosa moist, tongue midline. NECK: Full range of motion. Supple. Trachea midline. LUNGS: Clear to auscultation bilaterally, no wheezes, rales, or rhonchi. No respiratory distress. HEART: Regular rate and rhythm. No murmur ABDOMEN: Soft, non-tender. Non-distended. Bowel sounds present in all 4 quadrants. EXTREMITIES: Moves all 4 extremities spontaneously. No edema, normal radial and dorsalis pedis pulses bilaterally. No cyanosis. BACK: no cervical, thoracic, lumbar midline tenderness. No saddle anesthesia, normal distal neurovascular exam. No meningismus. NEUROLOGICAL: Alert and oriented x3. Normal speech. [cranial nerves II through XII grossly intact]. PSYCH: Normal affect, normal mood. SKIN: Warm, dry, normal turgor. No rashes or lesions noted. Course - Re-evaluation Re-evalutation: Patient with sharp intermittent pain in the right temporal area. No current headache, as result I have low suspicion of giant temporal arteritis, because of lack of headache also do not suspect subarachnoid hemorrhage, meningitis, or other emergent headache. Patient is very well-appearing, no signs of distress, normal neurological exam. Discussed options with patient, discussed neurology follow-up, provided with some medications for home and by prescription, discussed return precautions, patient states satisfaction and agreement. - Vital Signs Vital signs: Temp Pulse Resp BP Pulse Ox 98.3 F 82 20 137/82 H 98 09/25/17 20:52 09/25/17 20:52 09/25/17 20:52 09/25/17 20:52 09/25/17 20:52 Discharge - Discharge Clinical Impression: Headache Qualifiers: Headache type: unspecified Headache chronicity pattern: acute headache Intractability: not intractable Qualified Code(s): R51 - Headache Condition: Stable Disposition: HOME, SELF-CARE Additional Instructions: Your symptoms are suggestive of trigeminal neuralgia, although this is not definite. Take pain medication provided if needed, take the pain medication sent home with you at night if needed. Follow up with primary care (Phong referral), and neurology (Dr. Miranda). Return for any concerning worsening symptoms - persistent or worsening headache , vomiting, fever, vision changes, etc. Prescriptions: Ketorolac Tromethamine [Toradol 10 mg Tablet] 10 mg PO Q8HP PRN #24 tablet PRN Reason: Meclizine HCl [Bonine] 25 mg PO TID PRN #24 tab.chew PRN Reason: Referrals: JUMA MIRANDA MD [NO LOCAL MD] - Follow up as needed [facility] [Provider Group] - Follow up as needed
== END 2017-09-25 23:28 | disposition home or self-care (01) ==
LOC: ER 20:36
DX: R51 Headache (principal); F17.200 Nicotine dependence, unspecified, uncomplicated; Z86.14 Personal history of Methicillin resistant Staphylococcus aureus infection
CPT/HCPCS: 99283

== ENCOUNTER 2018-01-28 16:59 | Emergency (ER) | payer SELFPAY ==
--- NOTE | 2018-01-28 17:36 | ER Document Report ---
ED Medical Screen (RME) - General Chief Complaint: Facial Swelling Stated Complaint: LEFT SIDE FACE PAIN Time Seen by Provider: 01/28/18 17:35 Mode of Arrival: Ambulatory Information source: Patient Notes: happy smiing patient reports swelling to left temporal for a few days. denies trauma. history trigeminal neuralgia. TRAVEL OUTSIDE OF THE [place] IN LAST 30 DAYS: No - Related Data Allergies/Adverse Reactions: No Known Allergies Allergy (Verified 01/28/18 17:12) Past Medical History Renal/ Medical History: Reports: Hx Ovarian Cysts. Denies: Hx Peritoneal Dialysis Skin Medical History: Reports Hx MRSA Psychiatric Medical History: Reports: Hx Bipolar Disorder, Hx Depression - Immunizations Hx Diphtheria, Pertussis, Tetanus Vaccination: Yes - 2009
--- NOTE | 2018-01-28 17:50 | ER Document Report ---
HPI - HPI Patient complains to provider of: left face pain Onset: Other - 2 days Onset/Duration: Constant Quality of pain: Achy Pain Level: 4 Context: 32 yo female c/o left TNJ area pain for 2 days. Grinds teeth. Not same as dx of possilbe trigeminal neuralgia of the right face in past. Associated Symptoms: None Exacerbated by: Other - jaw movement Relieved by: Denies - ROS ROS below otherwise negative: Yes Systems Reviewed and Negative: Yes All other systems reviewed and negative - REPRODUCTIVE Reproductive: DENIES: : Past Medical History - General Information source: Patient - Social History Smoking Status: Unknown if Ever Smoked Family History: Arthritis, DM, Hypertension, Malignancy Renal/ Medical History: Reports: Hx Ovarian Cysts. Denies: Hx Peritoneal Dialysis Skin Medical History: Reports Hx MRSA Psychiatric Medical History: Reports: Hx Bipolar Disorder, Hx Depression Surgical Hx: Negative - Immunizations Hx Diphtheria, Pertussis, Tetanus Vaccination: Yes - 2009 Vertical Provider Document - CONSTITUTIONAL Agree With Documented VS: Yes Exam Limitations: No Limitations General Appearance: No Apparent Distress - INFECTION CONTROL TRAVEL OUTSIDE OF THE [place] IN LAST 30 DAYS: No - HEENT HEENT: negative: Pharyngeal Erythema, Tympanic Membrane Red Notes: tener left TMJ reproducing the pain she has been feeling, teeth OK - NECK Neck: Supple. negative: Lymphadenopathy-Left, Lymphadenopathy-Right - NEURO Level of Consciousness: Awake Motor/Sensory: No Motor Deficit, No Sensory Deficit Discharge - Discharge Clinical Impression: TMJ arthralgia Qualifiers: Laterality: left Qualified Code(s): M26.622 - Arthralgia of left temporomandibular joint Condition: Good Disposition: HOME, SELF-CARE Instructions: Acetaminophen, Ibuprofen (General) ([facility]), Muscle Relaxers ([facility]), Warm Packs ([facility]) Additional Instructions: Warm compress Muscle relaxer before you go to bed Motrin up to 3 times a day for inflammation and pain See the oral surgeon Dr. gerber for follow-up Tylenol up to 4000 mg a day for pain Prescriptions: Ibuprofen [Motrin 600 mg Tablet] 600 mg PO Q8HP PRN #30 tablet PRN Reason: Cyclobenzaprine HCl [Flexeril 10 Mg Tablet] 10 mg PO TIDP PRN #20 tablet PRN Reason: Referrals: PILY GERBER DDS [ACTIVE STAFF] - Follow up as needed
[2018-01-28 17:58] VITALS: BP 127/65
== END 2018-01-28 18:15 | disposition home or self-care (01) ==
LOC: ER 16:59
DX: M26.622 Arthralgia of left temporomandibular joint (principal); R51 Headache; Z86.14 Personal history of Methicillin resistant Staphylococcus aureus infection
CPT/HCPCS: 99283

== ENCOUNTER 2018-05-16 15:32 | Emergency (ER) | payer SELFPAY ==
[2018-05-16] MEDS ORDERED: KETOROLAC TROMETHAMINE INJ/PF 30 MG/1 ML SDV IV ONE (15:53)
[2018-05-16] MEDS ORDERED: NORMAL SALINE 1000 ML 1,000 ML IV ONE (15:53)
[2018-05-16] MEDS ORDERED: ONDANSETRON HCL INJ/PF 4 MG/2 ML SDV IV ONE (15:53)
[2018-05-16] MEDS ORDERED: IPRATROPIUM/ALBUTEROL 0.5-2.5 MG/3 ML AMPUL NEB ONE (15:54)
--- NOTE | 2018-05-16 15:55 | ER Document Report ---
ED Medical Screen (RME) - General TRAVEL OUTSIDE OF THE [place] IN LAST 30 DAYS: No <EVER FOSS - Last Filed: 05/16/18 15:55> <ZENOBIA HENDERSON - Last Filed: 05/17/18 01:34> - General Chief Complaint: Nausea/Vomiting/Diarrhea Stated Complaint: VOMITING Time Seen by Provider: 05/16/18 15:50 Notes: 33 years old smoker presents today with cough wheezing, currently on Zithromax. Also having nauseous and vomited a few times as well as had one loose bowel movement. Which is dark brown in color. History of constipation 2. (EVER FOSS) - Related Data Allergies/Adverse Reactions: No Known Allergies Allergy (Verified 05/16/18 15:34) Past Medical History Renal/ Medical History: Reports: Hx Ovarian Cysts. Denies: Hx Peritoneal Dialysis Skin Medical History: Reports Hx MRSA Psychiatric Medical History: Reports: Hx Bipolar Disorder, Hx Depression - Immunizations Hx Diphtheria, Pertussis, Tetanus Vaccination: Yes - 2009 <EVER FOSS - Last Filed: 05/16/18 15:55> - Vital signs Vitals: Temp Pulse Resp BP Pulse Ox 98.7 F 84 18 124/78 98 05/16/18 15:36 05/16/18 15:36 05/16/18 15:36 05/16/18 15:36 05/16/18 15:36 Course - Laboratory Result Diagrams: 05/16/18 16:10 05/16/18 16:10 <ZENOBIA HENDERSON - Last Filed: 05/17/18 01:34> - Vital Signs Vital signs: Temp Pulse Resp BP Pulse Ox 98.2 F 66 16 107/65 99 05/16/18 18:42 05/16/18 18:42 05/16/18 18:42 05/16/18 18:42 05/16/18 18:42 - Laboratory Laboratory results interpreted by me: 05/16/18 16:10 Total Protein 8.3 H Doctor's Discharge <EVER FOSS - Last Filed: 05/16/18 15:55> <ZENOBIA HENDERSON - Last Filed: 05/17/18 01:34> - Discharge Clinical Impression: Nausea, Vomiting, Cough, Diarrhea Condition: Stable Disposition: HOME, SELF-CARE Additional Instructions: You were seen today in the emergency department for nausea, vomiting, diarrhea, and a cough. You have been given IV fluids. Please continue to take the med ications you were given at the urgent care. Please start cetirizine (Zyrtec) to help with your nasal drainage. Please continue to use Flonase to help the inflammation in your nose. You have also been provided an inhaler. You may take the inhaler every 4 hours as needed for shortness of breath. You have also been given nausea medication. You may take 1 tablet every 6 hours as needed for nausea. Please start on the brat diet, bananas, rice, applesauce and toast. If you develop a fever greater than 100.4 F, have worsening symptoms or have any symptoms that are worrisome to you, please return to the emergency department.
--- NOTE | 2018-05-16 16:49 | RADIOLOGY REPORT (SQ) ---
EXAM DESCRIPTION: ACUTE ABDOMEN SERIES COMPLETED DATE/TIME: 05/16/2018 4:40 pm REASON FOR STUDY: Abdominal pain nausea vomiting COMPARISON: None. NUMBER OF VIEWS: Three views. TECHNIQUE: Frontal chest, supine abdomen and upright/decubitus abdomen radiographic images acquired. LIMITATIONS: None. FINDINGS: CHEST: Lungs clear of infiltrates. FREE AIR: None. No abnormal gas collections. BOWEL GAS PATTERN: Nonobstructive pattern. No dilated loops or air fluid levels. CALCIFICATIONS: No suspicious calcifications. HARDWARE: None in the abdomen. SOFT TISSUES: No gross mass or suggestion of organomegaly. BONES: No acute fracture. No worrisome bone lesions. OTHER: No other significant finding. IMPRESSION: NO RADIOGRAPHIC EVIDENCE FOR ACUTE ABDOMINAL DISEASE. TECHNICAL DOCUMENTATION: JOB ID: [id number] [employer]- All Rights Reserved Reading location - IP/workstation name: [email or web address]
[2018-05-16 16:51] LABS: ABSOLUTE EOSINOPHILS # (AUTO) 0.2 10^3/uL (0.0-0.6); ABSOLUTE LYMPHOCYTES (AUTO) 2.9 10^3/uL (0.5-4.7); ABSOLUTE MONOCYTES (AUTO) 0.5 10^3/uL (0.1-1.4); ABSOLUTE NEUT (AUTO) 4.9 10^3/uL (1.7-8.2); BASOPHILS % (AUTO) 0.5 % (0-2); EOSINOPHILS % (AUTO) 2.9 % (0-6); HEMATOCRIT 42.8 % (36.0-47.0); HEMOGLOBIN 15.2 g/dL (12.0-15.5); MEAN CORPUSCULAR HEMOGLOBIN 31.9 pg (27.0-33.4); MEAN CORPUSCULAR HGB CONC 35.5 g/dL (32.0-36.0); MEAN CORPUSCULAR VOLUME 90 fl (80-97); MONOCYTES % (AUTO) 5.5 % (3-13); PLATELET COUNT 384 10^3/uL (150-450); RED BLOOD COUNT 4.76 10^6/uL (3.72-5.28); RED CELL DISTRIBUTION WIDTH 12.9 % (11.5-14.0); SEGMENTED NEUTROPHILS % (AUTO) 57.1 % (42-78); TOTAL CELLS COUNTED % (AUTO) 100 %; WHITE BLOOD COUNT 8.6 10^3/uL (4.0-10.5)
[2018-05-16 17:04] LABS: ALANINE AMINOTRANSFERASE 33 U/L (9-52); ALBUMIN 4.8 g/dL (3.5-5.0); ALKALINE PHOSPHATASE 80 U/L (38-126); ANION GAP 8 (5-19); ASPARTATE AMINO TRANSFERASE 27 U/L (14-36); BILIRUBIN,DIRECT 0.3 mg/dL (0.0-0.4); BILIRUBIN,TOTAL 0.4 mg/dL (0.2-1.3); BLOOD UREA NITROGEN 12 mg/dL (7-20); CALCIUM 9.4 mg/dL (8.4-10.2); CARBON DIOXIDE 27 mmol/L (22-30); CHLORIDE 106 mmol/L (98-107); GLUCOSE 101 mg/dL (75-110); LIPASE 92.9 U/L (23-300); POTASSIUM 4.1 mmol/L (3.6-5.0); SODIUM 140.5 mmol/L (137-145); TOTAL PROTEIN 8.3 g/dL (6.3-8.2)
[2018-05-16] MEDS ORDERED: CETIRIZINE 10 MG TABLET PO ONE (17:26)
[2018-05-16 18:24] LABS: A TYPE INFLUENZA AG NEGATIVE (NEGATIVE); B INFLUENZA AG NEGATIVE (NEGATIVE)
[2018-05-16 18:47] VITALS: BP 107/65
[2018-05-16] MEDS ORDERED: ALBUTEROL SULFATE HFA (90 MCG/PUFF) 8 GM MDI (1 MDI/ER DISP) IH PRN (18:47)
[2018-05-16] MEDS ORDERED: ONDANSETRON ODT 4 MG TAB (6 TAB/ER DISP) PO PRN (18:59)
--- NOTE | 2018-05-16 19:00 | ER Document Report ---
ED General - General Chief Complaint: Nausea/Vomiting/Diarrhea Stated Complaint: VOMITING Time Seen by Provider: 05/16/18 15:50 Mode of Arrival: Ambulatory Information source: Patient Notes: Patient is a 33-year-old female who presents to the emergency department with a chief complaint of a cough. She states that she has had the cough for a few days, and continues to have postnasal drip. She was seen by urgent care and was given azithromycin, Flonase, and benzonatate to treat her symptoms and treat a possible infection. She states that she continues to cough and have a runny nose. Her main concern is her postnasal drip. She denies any fevers at this time. She has had associated diarrhea, nausea and vomiting along with her URI symptoms. Her nausea, vomiting, and diarrhea started today. TRAVEL OUTSIDE OF THE [place] IN LAST 30 DAYS: No - Related Data Allergies/Adverse Reactions: No Known Allergies Allergy (Verified 05/16/18 15:34) Past Medical History - Social History Smoking Status: Current Every Day Smoker Chew tobacco use (# tins/day): No Frequency of alcohol use: Social Drug Abuse: Marijuana Family History: Arthritis, DM, Hypertension, Malignancy Patient has suicidal ideation: No Patient has homicidal ideation: No Renal/ Medical History: Reports: Hx Ovarian Cysts. Denies: Hx Peritoneal Dialysis Skin Medical History: Reports Hx MRSA Psychiatric Medical History: Reports: Hx Bipolar Disorder, Hx Depression - Immunizations Hx Diphtheria, Pertussis, Tetanus Vaccination: Yes - 2009 Review of Systems - Review of Systems Notes: REVIEW OF SYSTEMS: CONSTITUTIONAL : Denies recent illness. Denies recent unintentional weight loss. Denies fever, chills, or sweats. EENT: See HPI CARDIOVASCULAR: Denies chest pain. RESPIRATORY: See HPI GASTROINTESTINAL: See HPI GENITOURINARY: Denies difficulty urinating, burning, blood in urine, urgency or frequency. MUSCULOSKELETAL: Denies neck and back pain. Denies joint pain or swelling. SKIN: Denies rash, itchiness, or lesions HEMATOLOGIC : Denies easy bruising or bleeding. LYMPHATIC: Denies swollen, painful, enlarged glands. NEUROLOGICAL: Denies no numbness or tingling denies weakness. Denies headache. Denies altered mental status. Denies alteration in speech. PSYCHIATRIC: Denies stress, anxiety, alteration in sleep patterns, or dep ression. All other systems reviewed and negative. Physical Exam - Vital signs Vitals: Temp Pulse Resp BP Pulse Ox 98.7 F 84 18 124/78 98 05/16/18 15:36 05/16/18 15:36 05/16/18 15:36 05/16/18 15:36 05/16/18 15:36 - Notes Notes: PHYSICAL EXAMINATION: GENERAL: Appears well, healthy, well-nourished, no acute distress. HEAD: Normocephalic, atraumatic. EYES: PERRL, conjunctiva normal, all extraocular movements intact, sclera nonicteric ENT: Moist mucous membranes. NECK: Supple, no noticeable swelling, redness, rash. Normal range of motion. LUNGS: Equal breath sounds bilaterally and clear to auscultation. No wheezes rales or rhonchi. CARDIOVASCULAR: S1-S2, regular rate, regular rhythm. Radial pulses 2+, normal. ABDOMEN: Normoactive bowel sounds. Soft, nontender, no guarding, no rebound tenderness, and no masses palpated. EXTREMITIES: Normal strength and range of motion, no pitting or edema. No cyanosis. NEUROLOGICAL: Moves all extremities upon command. Strength 5/5 in all extremities. PSYCH: Normal mood, normal affect. SKIN: Warm, dry. No rash, lesions, ulcerations noted. Normal skin turgor. Course - Re-evaluation Re-evalutation: Patient's lung sounds have greatly improved after her breathing treatment. An influenza screen will be sent to check for the flu. Her influenza screen is negative at this time. Her laboratory studies are unremarkable. She will be started on cetirizine since her main complaint is about her postnasal drip. She will continue her Flonase, azithromycin, and benzonatate regimen. She states she feels much better after receiving a liter of fluids. Her lab results are unremarkable. I do not suspect she has any acute abdominal etiology at this time. Her nausea and vomiting most likely due to her upper respiratory illness draining down her throat and swallowing. Verbal discharge instructions were given to the patient. They verbalized understanding. They are stable for discharge. - Vital Signs Vital signs: Temp Pulse Resp BP Pulse Ox 98.2 F 66 16 107/65 99 05/16/18 18:42 05/16/18 18:42 05/16/18 18:42 05/16/18 18:42 05/16/18 18:42 - Laboratory Result Diagrams: 05/16/18 16:10 05/16/18 16:10 Laboratory results interpreted by me: 05/16/18 16:10 Total Protein 8.3 H Discharge - Discharge Clinical Impression: Nausea, Cough Vomiting Qualifiers: Vomiting type: unspecified Vomiting Intractability: non-intractable Nausea presence: with nausea Qualified Code(s): R11.2 - Nausea with vomiting, unspecified Diarrhea Qualifiers: Diarrhea type: unspecified type Qualified Code(s): R19.7 - Diarrhea, unspecified Condition: Stable Disposition: HOME, SELF-CARE Additional Instructions: You were seen today in the emergency department for nausea, vomiting, diarrhea, and a cough. You have been given IV fluids. Please continue to take the medications you were given at the urgent care. Please start cetirizine (Zyrtec) to help with your nasal drainage. Please continue to use Flonase to help the inflammation in your nose. You have also been provided an inhaler. You may take the inhaler every 4 hours as needed for shortness of breath. You have also been given nausea medication. You may take 1 tablet every 6 hours as needed for nausea. Please start on the brat diet, bananas, rice, applesauce and toast. If you develop a fever greater than 100.4 F, have worsening symptoms or have any symptoms that are worrisome to you, please return to the emergency department.
== END 2018-05-16 19:05 | disposition home or self-care (01) ==
LOC: ER 15:32
DX: R11.2 Nausea with vomiting, unspecified (principal); R05 Cough; R19.7 Diarrhea, unspecified; R09.82 Postnasal drip; Z79.899 Other long term (current) drug therapy; R09.89 Other specified symptoms and signs involving the circulatory and respiratory systems; F17.200 Nicotine dependence, unspecified, uncomplicated
CPT/HCPCS: 94640; 99284; 96361; 96374; 96375; 36415; 83690; 85025; 80053; 87804; 74022; J1885; J2405; J7030; J3490; J7620

== ENCOUNTER 2018-05-18 20:09 | Emergency (ER) | payer SELFPAY ==
[2018-05-18] MEDS ORDERED: LIDOCAINE 2% JELLY 30 ML TUBE TOP ONE (22:31)
--- NOTE | 2018-05-18 22:34 | ER Document Report ---
HPI - HPI Patient complains to provider of: Rectal pain Time Seen by Provider: 05/18/18 22:18 Onset: Yesterday Onset/Duration: Gradual Quality of pain: Achy Pain Level: 3 Context: Patient complains of pain and swelling to the rectal area. Patient is concerned she has a hemorrhoid. Patient has been treating this area with sits baths and Preparation H cream [id number]. Patient denies any purulent drainage from rectum or fever. Patient denies any history of inflammatory bowel disease. Associated Symptoms: Other - Rectal pain Exacerbated by: Sitting Relieved by: Denies Similar symptoms previously: Yes Recently seen / treated by doctor: No - ROS ROS below otherwise negative: Yes Systems Reviewed and Negative: Yes All other systems reviewed and negative - CONSTITUTIONAL Constitutional: DENIES: Fever, Chills - GASTROINTESTINAL Gastrointestinal: REPORTS: Abdominal Pain - rectal pain. DENIES: Patient vomiting, Black / Bloody Stools - REPRODUCTIVE Reproductive: DENIES: : - DERM Skin Color: Normal Skin Problems: None Past Medical History - General Information source: Patient - Social History Smoking Status: Current Every Day Smoker Chew tobacco use (# tins/day): No Smoking Education Provided: Yes Drug Abuse: Marijuana Occupation: none Family History: Arthritis, DM, Hypertension, Malignancy Patient has suicidal ideation: No Patient has homicidal ideation: No Renal/ Medical History: Reports: Hx Ovarian Cysts. Denies: Hx Peritoneal Dialysis Skin Medical History: Reports Hx MRSA Psychiatric Medical History: Reports: Hx Bipolar Disorder, Hx Depression Surgical Hx: Negative - Immunizations Hx Diphtheria, Pertussis, Tetanus Vaccination: Yes - 2009 Vertical Provider Document - CONSTITUTIONAL Agree With Documented VS: Yes Exam Limitations: No Limitations General Appearance: WD/WN, No Apparent Distress - INFECTION CONTROL TRAVEL OUTSIDE OF THE [place] IN LAST 30 DAYS: No - HEENT HEENT: Atraumatic, Normocephalic - NECK Neck: Normal Inspection, Supple. negative: Lymphadenopathy-Left, Lymphadenopathy-Right - RESPIRATORY Respiratory: Breath Sounds Normal, No Respiratory Distress - CARDIOVASCULAR Cardiovascular: Regular Rate, Regular Rhythm, No Murmur - GI/ABDOMEN Gastrointestinal: Abdomen Soft Notes: Patient with hemorrhoid to the 6 o'clock position, no concern for thrombosis, no active bleeding. No internal anal tenderness. No concern for perianal abscess. - MUSCULOSKELETAL/EXTREMETIES Musculoskeletal/Extremeties: LEANDRO HINES - NEURO Level of Consciousness: Awake, Alert, Appropriate Motor/Sensory: No Motor Deficit - DERM Integumentary: Warm, Dry Course - Re-evaluation Re-evalutation: 05/18/18 22:32 Patient encouraged to use stool softeners [id number] and to use Tucks pads after bowel movements. Patient encouraged to stay well-hydrated and avoid constipation. - Vital Signs Vital signs: Temp Pulse Resp BP Pulse Ox 97.9 F 68 16 128/70 H 97 05/18/18 20:51 05/18/18 20:51 05/18/18 20:51 05/18/18 20:51 05/18/18 20:51 Discharge - Discharge Clinical Impression: Hemorrhoid Qualifiers: Hemorrhoid type: unspecified Qualified Code(s): K64.9 - Unspecified hemorrhoids Condition: Stable Disposition: HOME, SELF-CARE Instructions: HC Hemorrhoid Cream ([facility]), Hemorrhoids ([facility]) Additional Instructions: Return immediately for any new or worsening symptoms Followup with your primary care provider, call tomorrow to make a followup appointment Use Tucks pads [id number] after bowel movements Use [id number] Colace stool softener as directed Prescriptions: Hydrocortisone Acetate [Anusol Hc 25 Mg Supp.Rect] 25 mg HI BID PRN #12 supp.rect PRN Reason: Forms: Smoking Cessation Education Referrals: ELENITA QUEVEDO MD [Primary Care Provider] - Follow up as needed
[2018-05-18] MEDS ORDERED: LIDOCAINE 2% JELLY 30 ML TUBE ONE (22:40)
[2018-05-18 23:00] VITALS: BP 119/80
== END 2018-05-18 23:00 | disposition home or self-care (01) ==
LOC: ER 20:09
DX: K64.9 Unspecified hemorrhoids (principal); K62.89 Other specified diseases of anus and rectum; F17.200 Nicotine dependence, unspecified, uncomplicated; Z86.14 Personal history of Methicillin resistant Staphylococcus aureus infection
CPT/HCPCS: 99282

== ENCOUNTER 2018-06-25 15:18 | Emergency (ER) | payer OTHER ==
[2018-06-25 15:25] VITALS: BP 141/68
[2018-06-25] MEDS ORDERED: IBUPROFEN 600 MG TABLET PO ONE (16:10)
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
== END 2018-06-25 16:17 | disposition home or self-care (01) ==
LOC: ER 15:18
DX: M54.2 Cervicalgia (principal); V89.2XXA Person injured in unspecified motor-vehicle accident, traffic, initial encounter; F17.210 Nicotine dependence, cigarettes, uncomplicated; Z86.14 Personal history of Methicillin resistant Staphylococcus aureus infection
CPT/HCPCS: 99283; 99406

== ENCOUNTER 2018-07-22 08:54 | Emergency (ER) | payer OTHER ==
--- NOTE | 2018-07-22 10:01 | ER Document Report ---
ED ENT - General Chief Complaint: Sore Throat Stated Complaint: SORE THROAT, COUGH, JOINT PAIN Time Seen by Provider: 07/22/18 09:51 Primary Care Provider: ELENITA QUEVEDO MD [Primary Care Provider] - Follow up as needed Mode of Arrival: Ambulatory Information source: Patient Notes: 33-year-old female presents to ED for complaint of cough congestion sore throat since Sunday. 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 Patient is alert oriented respirations regular and unlabored speaking in full sentences walks with a even steady gait. Patient has a clear voice. TRAVEL OUTSIDE OF THE [place] IN LAST 30 DAYS: No - HPI Patient complains to provider of: Nose problem, Throat problem Onset: Last week Onset/Duration: Gradual - I did Quality of pain: Sharp Severity: Moderate Pain Level: 2 Context: Recent Illness Location of pain: Nose, Sinus, Throat Associated symptoms: Congestion, Cough, Runny nose, Sinus pain, Sinus drainage, Sore throat Similar symptoms previously: Yes Recently seen / treated by doctor: Yes - Related Data Allergies/Adverse Reactions: No Known Allergies Allergy (Verified 07/22/18 08:55) Past Medical History - General Information source: Patient - Social History Smoking Status: Current Every Day Smoker Cigarette use (# per day): Yes - Pack per day Smoking Education Provided: Yes - 4 minutes Frequency of alcohol use: Social - Weekly Drug Abuse: Marijuana 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[employer] Lives with: Spouse/Significant other Family History: Arthritis, DM, Hypertension, Malignancy Patient has suicidal ideation: No Patient has homicidal ideation: No - Past Medical History Cardiac Medical History: Reports: None Pulmonary Medical History: Reports: None EENT Medical History: Reports: None Neurological Medical History: Reports: None Endocrine Medical History: Reports: None Renal/ Medical History: Reports: Hx Ovarian Cysts Malignancy Medical History: Reports: None GI Medical History: Reports: None Musculoskeletal Medical History: Reports None Skin Medical History: Reports Hx MRSA Psychiatric Medical History: Reports: Hx Anxiety, Hx Bipolar Disorder, Hx Depression Traumatic Medical History: Reports: None Infectious Medical History: Reports: Hx MRSA Surgical Hx: Negative Past Surgical History: Reports: None - Immunizations Hx Diphtheria, Pertussis, Tetanus Vaccination: Yes - 2009 Review of Systems - Review of Systems Constitutional: Recent illness EENT: Nose discharge, Sinus discharge, Throat pain Cardiovascular: No symptoms reported Respiratory: No symptoms reported Gastrointestinal: No symptoms reported Genitourinary: No symptoms reported Female Genitourinary: No symptoms reported Musculoskeletal: No symptoms reported Skin: No symptoms reported Hematologic/Lymphatic: No symptoms reported Neurological/Psychological: No symptoms reported -: Yes All other systems reviewed and negative Physical Exam - Vital signs Vitals: Temp Pulse Resp BP Pulse Ox 98.6 F 79 17 120/65 99 07/22/18 09:15 07/22/18 09:15 07/22/18 09:15 07/22/18 09:15 07/22/18 09:15 Interpretation: Normal - General General appearance: Appears well, Alert - HEENT Head: Normocephalic, Atraumatic Eyes: Normal Pupils: PERRL Ears: Normal External canal: Normal Tympanic membrane: Normal Sinus: Normal Nasal: Purulent discharge, Swelling Mouth/Lips: Normal Pharynx: Post nasal drainage. No: Erythema, Exudate, Peritonsillar abscess, Retropharyngeal abscess, Tonsillar hypertrophy, Uvular edema, Potential airway comprom. Neck: Normal - Respiratory Respiratory status: No respiratory distress Chest status: Nontender Breath sounds: Normal Chest palpation: Normal - Cardiovascular Rhythm: Regular Heart sounds: Normal auscultation Murmur: No - Abdominal Inspection: Normal Distension: No distension Bowel sounds: Normal Tenderness: Nontender Organomegaly: No organomegaly - Back Back: Normal, Nontender - Extremities General upper extremity: Normal inspection, Nontender, Normal color, Normal ROM, Normal temperature General lower extremity: Normal inspection, Nontender, Normal color, Normal ROM, Normal temperature, Normal weight bearing. No: Osman's sign - Neurological Neuro grossly intact: Yes Cognition: Normal Orientation: AAOx4 [place] Coma Scale Eye Opening: Spontaneous Otto Coma Scale Verbal: Oriented [place] Coma Scale Motor: Obeys Commands [place] Coma Scale Total: 15 Speech: Normal Motor strength normal: LUE, RUE, LLE, RLE Sensory: Normal - Psychological Associated symptoms: Normal affect, Normal mood - Skin Skin Temperature: Warm Skin Moisture: Dry Skin Color: Normal Course - Vital Signs Vital signs: Temp Pulse Resp BP Pulse Ox 98.6 F 73 17 116/61 97 07/22/18 09:15 07/22/18 10:51 07/22/18 09:15 07/22/18 10:51 07/22/18 10:51 Discharge - Discharge Clinical Impression: Sore throat (viral) URI (upper respiratory infection) Qualifiers: URI type: unspecified viral URI Qualified Code(s): J06.9 - Acute upper respiratory infection, unspecified Condition: Stable Disposition: HOME, SELF-CARE Additional Instructions: UPPER RESPIRATORY ILLNESS: You have a viral infection of the respiratory passages -- a "cold." This common infection causes nasal congestion, drainage, and often sore throat and cough. It is highly contagious. The disease usually lasts about 10 to 14 days. There is no "cure" for the viral infection -- it must run its course. If there is a complication, such as bacterial infection in the nose, sinuses, middle ear, or bronchial tubes, antibiotics may be required. The antibiotics won't affect the virus. Drink plenty of fluids. A humidifier may help. An expectorant medication or decongestant may make you more comfortable. Use acetaminophen or ibuprofen for fever or aches. See the doctor if fever persists over two days, if there is any significant worsening of your symptoms, or if you simply fail to improve as expected. Can try Claritin 10 mg, Sudafed 30 mg, Mucinex 600 mg, and ibuprofen for your cough cold congestion symptoms please use according to the bottles instructions and do not overdose. You can also use Flonase nasal spray which will help to decrease this and secretions from your nose. This will decrease the drainage down the back your throat which will help with your sore throat. He can also use Chloraseptic spray which will help to decrease the discomfort in your thr oat. Salt and soda solution will also help with your sore throat. USE OF ACETAMINOPHEN (Tylenol): Acetaminophen may be taken for pain relief or fever control. It's much safer than aspirin, offering a wider range of "safe" dosages. It is safe during . Some brand names are Tylenol, Panadol, Datril, Anacin 3, Tempra, and Liquiprin. Acetaminophen can be repeated every four hours. The following are maximum recommended dosages: >89 pounds or adults 650 mg to 900 mg Acetaminophen can be repeated every four hours. Maximum dose not to exceed 4000 mg a day. SMOKING: If you smoke, you should stop smoking. The tar and chemicals in cigarette smoke are harmful. Smoking has been shown to cause: emphysema chronic bronchitis lung cancer mouth and throat cancer stomach and pancreas cancer premature aging defects In addition, smoking increases ear and lung infections in children of smoke rs. Salt and soda solution 1 quart of water 1 tablespoon of salt 1 teaspoon of baking soda Mixed 3 ingredients together and boil for 1 minute Placed in a covered quart jar Use 1/2 ounce of cold solution to gargle 3 times a day FOLLOW-UP CARE: If you have been referred to a physician for follow-up care, call the physicians office for an appointment as you were instructed or within the next two days. If you experience worsening or a significant change in your symptoms, notify the physician immediately or return to the Emergency Department at any time for re-evaluation. Forms: Smoking Cessation Education, Return to Work Referrals: ELENITA QUEVEDO MD [Primary Care Provider] - Follow up as needed
[2018-07-22 10:53] VITALS: BP 116/61
== END 2018-07-22 10:53 | disposition home or self-care (01) ==
LOC: ER 08:54
DX: J02.8 Acute pharyngitis due to other specified organisms (principal); B97.89 Other viral agents as the cause of diseases classified elsewhere; R05 Cough; R09.82 Postnasal drip; R09.89 Other specified symptoms and signs involving the circulatory and respiratory systems; F17.210 Nicotine dependence, cigarettes, uncomplicated; Z71.6 Tobacco abuse counseling
CPT/HCPCS: 87070; 87880; 99283; 99406

== ENCOUNTER 2018-08-02 20:55 | Emergency (ER) | payer SELFPAY ==
--- NOTE | 2018-08-02 22:31 | ER Document Report ---
HPI - HPI Time Seen by Provider: 08/02/18 22:22 Pain Level: 3 Notes: Patient is a 33-year-old female with a history of tobacco abuse who presents emergency department complaining of a dry nonproductive cough over the last 3 weeks with hoarseness over the last week and sore throat times 1 day. Patient is currently finishing up a Z-Jonathan. She did have a steroid taper early in the illness. Patient states that the steroid taper did seem to help initially. Patient has an inhaler at home, but has not had to use it recently. She has been eating and drinking without difficulty since. She is urinating normally and having normal bowel movements. Patient states that her voice does improve throughout the day. She has no other concerns or complaints. Patient requesting chest x-ray. Denies any headache, fever, neck pain, chest pain, palpitations, syncope, shortness of breath, wheeze, dyspnea, abdominal pain, nausea/vomiting/diarrhea, urinary retention, dysuria, hematuria, or rash. - ROS Systems Reviewed and Negative: Yes All other systems reviewed and negative - CONSTITUTIONAL Constitutional: REPORTS: Fever - EENT EENT: REPORTS: Sore Throat - RESPIRATORY Respiratory: REPORTS: Coughing - REPRODUCTIVE Reproductive: DENIES: : Past Medical History - Social History Smoking Status: Current Every Day Smoker Family History: Arthritis, DM, Hypertension, Malignancy Patient has suicidal ideation: No Patient has homicidal ideation: No Renal/ Medical History: Reports: Hx Ovarian Cysts. Denies: Hx Peritoneal Dialysis Skin Medical History: Reports Hx MRSA Psychiatric Medical History: Reports: Hx Anxiety, Hx Bipolar Disorder, Hx Depression Infectious Medical History: Reports: Hx MRSA - Immunizations Hx Diphtheria, Pertussis, Tetanus Vaccination: Yes - 2009 [facility] Provider Document - CONSTITUTIONAL Agree With Documented VS: Yes Notes: PHYSICAL EXAMINATION: GENERAL: Well-appearing, well-nourished and in no acute distress. A&Ox4. Answers questions appropriately. Moves comfortably w/o notable distress HEAD: Atraumatic, normocephalic. EYES: Pupils equal round and reactive to light, extraocular movements intact, sclera anicteric, conjunctiva are normal. ENT: EAC clear b/l. TM's intact b/l without erythema, fluid, or perforation. Nares patent and without discharge. oropharynx no erythema without exudates. No tonsilar hypertrophy with mild erythema no exudate. No palatine shift. Uvula midline. No tongue protrusion. No drooling, hoarseness, or airway compromise. Moist mucous membranes. No sinus tenderness. NECK: Normal range of motion, supple without lymphadenopathy. No rigidity/meningismus. LUNGS: Breath sounds clear to auscultation bilaterally and equal. No wheezes rales or rhonchi. No retractions HEART: Regular rate and rhythm without murmurs, rubs, gallops. ABDOMEN: Soft, nontender, nondistended abdomen. No guarding, no rebound. Normal bowel sounds present. No CVA tenderness bilaterally. NEUROLOGICAL: Normal speech, normal gait. PSYCH: Normal mood, normal affect. SKIN: Warm, Dry, normal turgor, no rashes or lesions noted. - INFECTION CONTROL TRAVEL OUTSIDE OF THE [place] IN LAST 30 DAYS: No Course - Re-evaluation Re-evalutation: 08/02/18 Patient is an afebrile, well-hydrated, 33-year-old female who presents to the ED with acute bronchitis/laryngitis, suspect viral. Vitals are acceptable. PE is otherwise unremarkable. Rapid strep negative with culture pending. Chest x-ray unremarkable. No other labs or imaging warranted at this time based on H&P. Patient has no significant cardiopulmonary or immunocompromised medical conditions aside from controlled asthma. Patient's lungs are clear to auscultation bilaterally without tachycardia, hypoxia, or tachypnea. Patient is tolerating p.o. without any difficulties. Low suspicion for any meningitis, sepsis, peritonsillar/pharyngeal abscess, respiratory compromise, severe dehydration, or other emergent systemic condition at this time. Patient is aware this condition can change from initial presentation and she needs to monitor symptoms closely. Conservative measures otherwise for symptoms. Recheck with your PCM in 3-5 days. Return to the ED with any worsening/concerning symptoms otherwise as reviewed in discharge. Patient is in agreement. - Vital Signs Vital signs: Temp Pulse Resp BP Pulse Ox 99.6 F 99 19 149/69 H 99 08/02/18 21:20 08/02/18 21:20 08/02/18 21:20 08/02/18 21:20 08/02/18 21:20 Discharge - Discharge Clinical Impression: Laryngitis Acute bronchitis Qualifiers: Bronchitis organism: unspecified organism Qualified Code(s): J20.9 - Acute bronchitis, unspecified Condition: Stable Disposition: HOME, SELF-CARE Instructions: Bronchitis ([facility]), Laryngitis ([facility]) Additional Instructions: Maintain adequate fluid intake Take meds as directed tylenol/ibuprofen as needed over the counter cold medication as needed for symptoms Humidified air may help Wash your hands regularly Wear a mask when coughing F/u: with your PCM in 3-5 days for a recheck Return to the ED with any fever, worsening pain, chest pain, palpitations, s yncope, worsening GIRON, neck pain/stiffness, shortness of breath, wheezing, drooling, trouble swallowing/breathing, abdominal pain, n/v/d, rash, or worsening/concerning symptoms otherwise. Prescriptions: Prednisone [Deltasone 10 mg Tablet] 10 mg PO DAILY #18 tablet Forms: Elevated Blood Pressure Referrals: ELENITA QUEVEDO MD [NO LOCAL MD] - Follow up as needed
--- NOTE | 2018-08-02 23:01 | RADIOLOGY REPORT (SQ) ---
EXAM DESCRIPTION: XR CHEST 2 VIEWS COMPLETED DATE/TME: 08/02/2018 22:28 CLINICAL HISTORY: 33 years, Female, cough COMPARISON: X-ray chest 07/16/2014 NUMBER OF VIEWS: TECHNIQUE: LIMITATIONS: None. FINDINGS: No evidence of pulmonary infiltrate or pleural effusion. The heart and mediastinum are unremarkable. Pulmonary vascularity appears normal. IMPRESSION: Normal chest x-ray. copyright 2010 [employer]- All Rights Reserved
[2018-08-02 23:49] VITALS: BP 125/72
== END 2018-08-02 23:49 | disposition home or self-care (01) ==
LOC: ER 20:55
DX: J20.9 Acute bronchitis, unspecified (principal); J04.0 Acute laryngitis; R05 Cough; J02.9 Acute pharyngitis, unspecified; F17.200 Nicotine dependence, unspecified, uncomplicated
CPT/HCPCS: 71046; 87070; 87880; 99283

== ENCOUNTER 2018-08-11 11:24 | Emergency (ER) | payer SELFPAY ==
--- NOTE | 2018-08-11 11:50 | ER Document Report ---
ED Medical Screen (RME) - General Chief Complaint: Toe Injury Stated Complaint: TOE INJURY Time Seen by Provider: 08/11/18 11:48 TRAVEL OUTSIDE OF THE [place] IN LAST 30 DAYS: No - HPI Notes: 08/11/18 11:48 Patient is a 33-year-old female with a history of onychomycosis who presents to the emergency department complaining of injury to her left great toenail when she hit it off of the base of her bed causing the nail to lift up. Patient states that she has had some bleeding since then. Patient states that the nail was already slightly coming off the bed because of the fungal infection. Patient is requesting the nail to be removed. Denies GIRON, fever, neck pain, URI, CP, SOB, Abd pain, or rash. I have treated and performed a rapid initial assessment of this patient. A comprehensive ED assessment and evaluation of the patient, analysis of test results and completion of medical decision making process will be conducted by additional ED providers. PHYSICAL EXAMINATION: GENERAL: Well-appearing, well-nourished and in no acute distress. A&Ox4. Answers questions appropriately. LUNGS: Breath sounds clear to auscultation bilaterally and equal. No wheezes rales or rhonchi. HEART: Regular rate and rhythm without murmurs, rubs, gallops. Extremities: No cyanosis, clubbing, or edema b/l. NEUROLOGICAL: Normal speech, normal gait. PSYCH: Normal mood, normal affect. Skin: left great toe: fungal infection noted, nail is not attached to bed with minimal bleeding. No obvious deformity. - Related Data Allergies/Adverse Reactions: No Known Allergies Allergy (Verified 07/22/18 08:55) Past Medical History Renal/ Medical History: Reports: Hx Ovarian Cysts. Denies: Hx Peritoneal Dialysis Skin Medical History: Reports Hx MRSA Psychiatric Medical History: Reports: Hx Anxiety, Hx Bipolar Disorder, Hx Depression Infectious Medical History: Reports: Hx MRSA - Immunizations Hx Diphtheria, Pertussis, Tetanus Vaccination: Yes - 2009 Physical Exam - Vital signs Vitals: Temp Pulse Resp BP Pulse Ox 97.7 F 84 16 125/68 96 08/11/18 11:32 08/11/18 11:32 08/11/18 11:32 08/11/18 11:32 08/11/18 11:32 Course - Vital Signs Vital signs: Temp Pulse Resp BP Pulse Ox 97.7 F 84 16 125/68 96 08/11/18 11:32 08/11/18 11:32 08/11/18 11:32 08/11/18 11:32 08/11/18 11:32
[2018-08-11] MEDS ORDERED: LIDOCAINE 1% INJ-PF (10 MG/ML) 30 ML SDV INJ ONE (12:54)
[2018-08-11] MEDS ORDERED: BUPIVACAINE HCL 0.25 % INJ/PF (2.5 MG/1 ML) 30 ML VIAL INJ ONE (12:54)
--- NOTE | 2018-08-11 12:55 | ER Document Report ---
ED General - General Chief Complaint: Toe Injury Stated Complaint: TOE INJURY Time Seen by Provider: 08/11/18 11:48 Primary Care Provider: JULIA FLEMING MD [COMMUNITY BASED STAFF] - Follow up in 3-5 days (OR YOUR PRIMARY CARE. ) Notes: Patient is a 33 year old female that presents to the emergency department for chief complaint of left big toe pain. Patient reports that early this morning she got up out of bed and accidently hit her left great toe on a wooden bed post that resulted in dislodging part of her left great toe nail with some bleeding. She currently rates her pain as a 2 out of 10 and describes the pain as an aching and throbbing sensation. Denies any numbness or tingling, denies any other injuries. She is up to date with immunizations including tetanus. She does report having an fungal infection to that toenail. Past Medical History: depression Past Surgical History: denies major surgical history Social History: admits to smoking cigarettes and social etoh use, denies illicit drug use. Family History: Reviewed and noncontributory for presenting illness Allergies: Reviewed, see documented allergy list. REVIEW OF SYSTEMS: Other than noted above, the 12 point review of systems was reviewed with the patient and were negative, all pertinent findings are included in the HPI. PHYSICAL EXAMINATION: Vital signs reviewed, nursing noted reviewed. GENERAL: Well-appearing, well-nourished and in no acute distress. HEAD: Atraumatic, normocephalic. EYES: Eyes appear normal, sclera anicteric, conjunctiva are normal. ENT: Moist mucous membranes. NECK: Normal range of motion, supple without lymphadenopathy LUNGS: Breath sounds clear to auscultation bilaterally and equal. No wheezes rales or rhonchi. HEART: Regular rate and rhythm without murmurs EXTREMITIES: The left great toe is noted to have a partially avulsed toenail that appears to have onychomycosis, there is a moderate sized subungal hematoma as well. There is tenderness to palpation to the distal end of the left great toe, no obvious deformity, normal cap refill in all digits, the rest of the foot is unremarkable, as is the rest of the patient overall extremity exam. NEUROLOGICAL: No focal neurological deficits. Moves all extremities spontaneously Motor and sensory grossly intact on exam. PSYCH: Normal mood, normal affect. SKIN: Warm, Dry, normal turgor, no rashes or lesions noted on exposed skin TRAVEL OUTSIDE OF THE [place] IN LAST 30 DAYS: No - Related Data Allergies/Adverse Reactions: No Known Allergies Allergy (Verified 07/22/18 08:55) Past Medical History - Social History Smoking Status: Current Every Day Smoker Chew tobacco use (# tins/day): No Frequency of alcohol use: Occasional Drug Abuse: None Family History: Arthritis, DM, Hypertension, Malignancy Patient has suicidal ideation: No Patient has homicidal ideation: No Renal/ Medical History: Reports: Hx Ovarian Cysts. Denies: Hx Peritoneal Dialysis Skin Medical History: Reports Hx MRSA Psychiatric Medical History: Reports: Hx Anxiety, Hx Bipolar Disorder, Hx Depression Infectious Medical History: Reports: Hx MRSA - Immunizations Hx Diphtheria, Pertussis, Tetanus Vaccination: Yes - 2009 Physical Exam - Vital signs Vitals: Temp Pulse Resp BP Pulse Ox 97.7 F 84 16 125/68 96 08/11/18 11:32 08/11/18 11:32 08/11/18 11:32 08/11/18 11:32 08/11/18 11:32 Course - Re-evaluation Re-evalutation: Patient seen and examined vital signs reviewed. Patient appeared overall well, noted to have partially avulsed left great toenail. Xray obtained and negative for fracture. After negative xrays, the patients toe was prepped, and anesthetized, and the toenail was removed as described below. Patient tolerated well. Advised follow up with PCP or podiatry. Advised keeping the area clean and dry as the nail regrows. Patient agreed with plan of care and was discharged to home in stable and improved condition. Toe X-Ray 08/11/18 12:56 IMPRESSION: NO FRACTURE. - Vital Signs Vital signs: Temp Pulse Resp BP Pulse Ox 97.9 F 67 16 124/67 98 08/11/18 14:17 08/11/18 14:17 08/11/18 11:32 08/11/18 14:17 08/11/18 14:17 Procedures - Nail Trephanation/Removal Left Great toe Nail Trepanation/Removal Location: Left Great Toe Notes: The patient's left great toe was prepped and draped in the usual sterile fashion, patient's left great toe was anesthetized and blocked with a digital block, using a combination 1% lidocaine, and 0.5% bupivacaine, patient tolerated well, with complete analgesia and anesthesia of the left great toe, the nail was then released from the cuticle, and removed completely, then was dressed with Xeroform and Kerlix, patient tolerated well, without complication. Discharge - Discharge Clinical Impression: Nail avulsion, toe Qualifiers: Encounter type: initial encounter Qualified Code(s): S91.209A - Unspecified open wound of unspecified toe(s) with damage to nail, initial encounter Condition: Stable Disposition: HOME, SELF-CARE Instructions: Avulsed Nail ([facility]) Additional Instructions: You had your toenail removed today, a dressing is been applied, you can readdress this over the next few days, or leave it open to air, although it may be uncomfortable, alternatively you can put a loose Band-Aid, over it to protect the nailbed as it can be very sensitive. Please follow-up with your primary care physician. Forms: Return to Work Referrals: JULIA FLEMING MD [COMMUNITY BASED STAFF] - Follow up in 3-5 days (OR YOUR PRIMARY CARE. )
--- NOTE | 2018-08-11 13:41 | RADIOLOGY REPORT (SQ) ---
EXAM DESCRIPTION: TOE LEFT COMPLETED DATE/TIME: 08/11/2018 1:30 pm REASON FOR STUDY: left toe injury COMPARISON: None. EXAM PARAMETERS: NUMBER OF VIEWS: Three views. TECHNIQUE: AP, lateral and oblique radiographic images acquired of the left foot. LIMITATIONS: None. FINDINGS: MINERALIZATION: Normal. BONES: No acute fracture or dislocation. No worrisome bone lesions. JOINTS: No effusion. SOFT TISSUES: No significant soft tissue swelling. No radiopaque foreign body. OTHER: No other significant finding. IMPRESSION: NO FRACTURE. TECHNICAL DOCUMENTATION: JOB ID: [id number] [place]-72 2010 [employer]- All Rights Reserved Reading location - IP/workstation name: [employer]
[2018-08-11 14:32] VITALS: BP 124/67
== END 2018-08-11 14:33 | disposition home or self-care (01) ==
LOC: ER 11:24
DX: S91.209A Unspecified open wound of unspecified toe(s) with damage to nail, initial encounter (principal); F17.210 Nicotine dependence, cigarettes, uncomplicated; W22.03XA Walked into furniture, initial encounter; Y92.003 Bedroom of unspecified non-institutional (private) residence as the place of occurrence of the external cause; Z86.14 Personal history of Methicillin resistant Staphylococcus aureus infection
CPT/HCPCS: 99283; 73660; 11730; J3490

== ENCOUNTER 2018-10-13 18:47 | Emergency (ER) | payer SELFPAY ==
--- NOTE | 2018-10-13 20:28 | ER Document Report ---
ED Medical Screen (RME) - General Chief Complaint: Flank Pain Stated Complaint: BACK PAIN Time Seen by Provider: 10/13/18 20:23 TRAVEL OUTSIDE OF THE [place] IN LAST 30 DAYS: No - HPI Notes: 10/13/18 20:27 Patient is a 33-year-old female no significant past medical history who presents complaining of pain to her left flank area that does not radiate over the past few days. Patient states that she did have dark and foul-smelling urine this morning. She is otherwise eating and drinking without difficulty. She is having normal bowel moods. No other vaginal discharge, odor, or bleeding. Denies drug allergies. Denies GIRON, fever, neck pain, URI, CP, SOB, Abd pain, n/v/d, or rash. I have treated and performed a rapid initial assessment of this patient. A comprehensive ED assessment and evaluation of the patient, analysis of test results and completion of medical decision making process will be conducted by additional ED providers. PHYSICAL EXAMINATION: GENERAL: Well-appearing, well-nourished and in no acute distress. A&Ox4. Answers questions appropriately. LUNGS: Breath sounds clear to auscultation bilaterally and equal. No wheezes rales or rhonchi. HEART: Regular rate and rhythm without murmurs, rubs, gallops. ABDOMEN: Soft, nondistended abdomen. No guarding, no rebound. Normal bowel sounds present. + mild left CVA tenderness. grossly non-tender (cannot elicit thorough abd exam w/o bed, however). Back: + mild tenderness to palp left flank area. FROM. No midline tenderness or foot drop. Skin: no rash - Related Data Allergies/Adverse Reactions: No Known Allergies Allergy (Verified 10/13/18 18:48) Past Medical History Renal/ Medical History: Reports: Hx Ovarian Cysts. Denies: Hx Peritoneal Dialysis Skin Medical History: Reports Hx MRSA Psychiatric Medical History: Reports: Hx Anxiety, Hx Bipolar Disorder, Hx Depression Infectious Medical History: Reports: Hx MRSA - Immunizations Hx Diphtheria, Pertussis, Tetanus Vaccination: Yes - 2009 Physical Exam - Vital signs Vitals: Temp Pulse Resp BP Pulse Ox 98.4 F 84 18 141/92 H 96 10/13/18 18:52 10/13/18 18:52 10/13/18 18:52 10/13/18 18:52 10/13/18 18:52 Course - Vital Signs Vital signs: Temp Pulse Resp BP Pulse Ox 98.4 F 84 18 141/92 H 96 10/13/18 18:52 10/13/18 18:52 10/13/18 18:52 10/13/18 18:52 10/13/18 18:52
[2018-10-13] MEDS ORDERED: ACETAMINOPHEN 325 MG TABLET PO ONE (20:29)
[2018-10-13 22:29] LABS: APPEARANCE,URINE CLOUDY; BILIRUBIN,URINE NEGATIVE (NEGATIVE); COLOR,URINE YELLOW; GLUCOSE, URINE NEGATIVE (NEGATIVE); KETONES,URINE NEGATIVE (NEGATIVE); LEUKOCYTE ESTERASE,URINE SMALL (NEGATIVE); NITRITE,URINE POSITIVE (NEGATIVE); PROTEIN,URINE 100 mg/dL (NEGATIVE); UROBILINOGEN,URINE NEGATIVE mg/dL (<2.0)
[2018-10-13] MEDS ORDERED: ACETAMINOPHEN 325 MG TABLET ONE (23:36)
[2018-10-13 23:46] VITALS: BP 118/82
--- NOTE | 2018-10-13 23:55 | RADIOLOGY REPORT (SQ) ---
EXAM DESCRIPTION: US RETROPERITONEUM COMPLETED DATE/TME: 10/13/2018 22:10 CLINICAL HISTORY: 33 years, Female, left back and flank pain COMPARISON: None. TECHNIQUE: Two the grayscale images of the kidneys were performed. Doppler was utilized. LIMITATIONS: None. FINDINGS: Right kidney measures 12.5 x 4.5 x 4.4 cm in size. Left kidney measures 10.4 x 6.1 x 5.6 cm in size. Both kidneys are normal in echogenicity. No hydronephrosis. Visualized portions of the abdominal aorta appear normal. Measurements are as follows: Proximal abdominal aorta: 1.4 cm Mid abdominal aorta: 1.3 cm Distal abdominal aorta: 1.1 cm Visualized portions of the urinary bladder show no suspicious abnormality. IMPRESSION: Normal retroperitoneal ultrasound. copyright 2010 [employer]- All Rights Reserved
[2018-10-14] MEDS ORDERED: LIDOCAINE 1% INJ-PF (10 MG/ML) 30 ML SDV INFIL ONE (00:01)
[2018-10-14] MEDS ORDERED: CEFTRIAXONE INJ 1000 MG VIAL IM ONE (00:01)
[2018-10-14] MEDS ORDERED: KETOROLAC TROMETHAMINE INJ/PF 30 MG/1 ML SDV IM ONE (00:01)
--- NOTE | 2018-10-14 00:12 | ER Document Report ---
ED General - General Chief Complaint: Flank Pain Stated Complaint: BACK PAIN Time Seen by Provider: 10/13/18 20:23 Primary Care Provider: ZBIGNIEW TAYLOR MD [Primary Care Provider] - Follow up in 3-5 days Notes: Patient is a pleasant 33-year-old female presents with complaint of pain of her left kidney. She denies have history of kidney stones or kidney infections. She said symptoms have been ongoing all day. No fevers. Some nausea. No diarrhea. She has noticed some foul-smelling urine that developed later today. She denies any trauma or injuries to her back. No recent history of strain or pulling type pain in her back. TRAVEL OUTSIDE OF THE [place] IN LAST 30 DAYS: No - Related Data Allergies/Adverse Reactions: No Known Allergies Allergy (Verified 10/13/18 18:48) Past Medical History - Social History Smoking Status: Current Every Day Smoker Frequency of alcohol use: Occasional Drug Abuse: None Family History: Arthritis, DM, Hypertension, Malignancy Patient has suicidal ideation: No Patient has homicidal ideation: No Renal/ Medical History: Reports: Hx Ovarian Cysts. Denies: Hx Peritoneal Dialysis Skin Medical History: Reports Hx MRSA Psychiatric Medical History: Reports: Hx Anxiety, Hx Bipolar Disorder, Hx Depression Infectious Medical History: Reports: Hx MRSA - Immunizations Hx Diphtheria, Pertussis, Tetanus Vaccination: Yes - 2009 Review of Systems - Review of Systems Notes: My Normal Review Basic REVIEW OF SYSTEMS: CONSTITUTIONAL : Denies fever, chills, or sweats. Denies recent illness. RESPIRATORY: Denies cough, cold, or chest congestion. Denies shortness of breath, difficulty breathing, or wheezing. GASTROINTESTINAL: Denies abdominal pain. Some nausea. Denies constipation. GENITOURINARY: Dysuria FEMALE GENITOURINARY: Denies vaginal bleeding, abnormal or irregular periods. MUSCULOSKELETAL: left Sided back pain SKIN: Denies rash or skin lesions. NEUROLOGICAL: Denies sensory or motor loss. ALL OTHER SYSTEMS REVIEWED AND NEGATIVE. Physical Exam - Vital signs Vitals: Temp Pulse Resp BP Pulse Ox 98.4 F 84 18 141/92 H 96 10/13/18 18:52 10/13/18 18:52 10/13/18 18:52 10/13/18 18:52 10/13/18 18:52 - Notes Notes: General Appearance: Well nourished, alert, cooperative, no acute distress, moderate obvious discomfort. Vitals: reviewed, See vital signs table. Eyes: PERRL, EOMI, Conjuctiva clear Lungs: No wheezing, No rales, No rhonci, No accessory muscle use, good air exchange bilaterally. Heart: Normal rate, Regular rythm, No murmur, no rub Back: Positive Nicola sign on the left. Abdomen: Normal BS, soft, No rigidity, No abdominal tenderness, No guarding, no rebound, no abdominal masses, no organomegaly Extremities: strength 5/5 in all extremities, good pulses in all extremities, no swelling or tenderness in the extremities, no edema. Skin: warm, dry, appropriate color, no rash Neuro: speech clear, oriented x 3, normal affect, responds appropriately to questions. Course - Re-evaluation Re-evalutation: 10/14/18 00:11 Patient's exam is consistent with a pyelonephritis; however, her pain was one- sided and therefore I did go forward with an ultrasound to make sure is no evidence of hydronephrosis or suggestion of kidney stone. Ultrasound was negative for hydronephrosis. Patient was given dose of Rocephin. I will also prescribe her Toradol. I informed her that she still needs to have a very low threshold to return to ER if she has worsening pain, fevers, vomiting, or feels that she is worsening any way. Patient agrees with plan and will be discharged home. Dictation of this chart was performed using voice recognition software; therefore, there may be some unintended grammatical errors. 10/14/18 00:12 - Vital Signs Vital signs: Temp Pulse Resp BP Pulse Ox 98.8 F 74 16 118/82 100 10/13/18 23:45 10/13/18 23:45 10/13/18 23:45 10/13/18 23:45 10/13/18 23:45 - Laboratory Laboratory results interpreted by me: 10/13/18 22:18 Urine Protein 100 H Urine Blood LARGE H Urine Nitrite POSITIVE H Ur Leukocyte Esterase SMALL H Discharge - Discharge Clinical Impression: Pyelonephritis Condition: Good Disposition: HOME, SELF-CARE Additional Instructions: PYELONEPHRITIS: Your evaluation shows evidence of pyelonephritis. This is an infection in the kidney. Typical symptoms are fever, pain in the flank, pain on urination, and frequent urination. Many cases of pyelonephritis can be treated at home. Hospital care may be necessary for patients who are very ill, or elderly or . Pyelonephritis is treated with antibiotics. Be sure to take all the medication as prescribed. Drink plenty of liquids (about three quarts per day). You may take acetaminophen for fever. You should feel significantly improved within two days. You should have a recheck of your urine in about one week to insure that the infection is gone. Return for a re-examination if your symptoms worsen in any way -- such as high fever, shaking chills, severe weakness or dizziness, severe pain, or inability to pass your urine. TORADOL INJECTION: You have been given an injection of ketorolac tromethamine (Toradol). This is an excellent, safe drug for pain control. It also has potent antiinflammatory action. You should have significant pain relief within about one hour. Toradol is not addicting and is non-sedating. It does not interfere with driving or work. Call or return if you develop itching, hives, shortness of breath, or rash. ANTIBIOTIC THERAPY: You have been given an antibiotic prescription. It's important that you take all the medication, unless instructed otherwise by your physician. Failure to complete the entire course can result in relapse of your condition. Common side effects of antibiotics include nausea, intestinal cramping, or diarrhea. Women may develop vaginal yeast infections, and babies can get yeast (thrush) in the mouth following the use of antibiotics. Contact your physician if you develop significant side effects from this medication. Allergy to this antibiotic can result in hives, wheezing, faintness, or itching. If symptoms of allergy occur, stop the medication and call the doctor. ROCEPHIN: You have been given an injection of an antibiotic called Rocephin (ceftriaxone). Sometimes the injection must be combined with antibiotic pills. For some infections, such as an uncomplicated ear infection, Rocephin provides all the antibiotic that's needed. The antibiotic will be in your body for about two days. For serious infections, we usually repeat doses of Rocephin daily. Side effects are very unusual following a shot. Women may develop vaginal yeast infections, and babies can get yeast (thrush) in the mouth following the use of antibiotics. Contact your physician if you have symptoms with this medication. Allergy to this antibiotic can result in hives, wheezing, faintness, or itching. If symptoms of allergy occur, call the doctor at once. CEPHALEXIN: The antibiotic you've been prescribed is a member of the cephalosporin class. This type of antibiotic covers a wide variety of infections, including those of the skin, lungs, and urinary tract. It's useful for staph infections. This antibiotic is slightly similar to the penicillin family. In rare cases, a person who is allergic to penicillin will also be allergic to this medication. If you have had a severe allergic reaction to penicillin, and have not taken this antibiotic since that time, notify your doctor. Antibiotics which cover many germs ("broad spectrum" antibiotics) are more likely to cause diarrhea or "yeast" infections. Women prone to vaginal yeast problems may suffer an attack after taking this antibiotic. In infants, oral thrush (white spots "stuck" on the cheek) or yeast diaper rash may result. See your doctor if these problems occur. Call at once if you develop itching, hives, shortness of breath, or lightheadedness. FOLLOW-UP CARE: If you have been referred to a physician for follow-up care, call the physicians office for an appointment as you were instructed or within the next two days. If you experience worsening or a significant change in your symptoms, notify the physician immediately or return to the Emergency Department at any time for re-evaluation. Please take the antibiotics as prescribed. Your ultrasound currently does not show evidence of a kidney stone. Work-up is consistent with that of a kidney infection. Kidney infection typically responded well to antibiotics; however, sometimes they will worsen despite treatment. We still want you to have a low threshold to return to the ER if you have fevers, vomiting, worsening pain, or feel that you are worsening in any way. Do not take other NSAID medicaitons such as Aspirin, Motrin, Ibuprofen, Aleve, or Advil when taking Toradol. It is okay to take Tylenol. Prescriptions: Ketorolac Tromethamine [Toradol 10 mg Tablet] 10 mg PO Q8HP PRN #15 tablet PRN Reason: Cephalexin Monohydrate [Keflex 500 mg Capsule] 500 mg PO TID #21 capsule Forms: Return to Work Referrals: ZBIGNIEW TAYLOR MD [Primary Care Provider] - Follow up in 3-5 days
== END 2018-10-14 01:14 | disposition home or self-care (01) ==
LOC: ER 18:47
DX: N12 Tubulo-interstitial nephritis, not specified as acute or chronic (principal); F17.200 Nicotine dependence, unspecified, uncomplicated; M54.9 Dorsalgia, unspecified
CPT/HCPCS: 99284; 96372; 87086; 81025; 87088; 81001; 87186; 76770; J3490; J1885; J0696

== ENCOUNTER → 2018-10-30 | Outpatient (CLI) | payer OTHER ==
[2018-10-30 08:48] LABS: ABSOLUTE EOSINOPHILS # (AUTO) 0.1 10^3/uL (0.0-0.6); ABSOLUTE LYMPHOCYTES (AUTO) 2.3 10^3/uL (0.5-4.7); ABSOLUTE MONOCYTES (AUTO) 0.4 10^3/uL (0.1-1.4); BASOPHILS % (AUTO) 0.3 % (0-2); EOSINOPHILS % (AUTO) 2.2 % (0-6); HEMATOCRIT 42.8 % (36.0-47.0); HEMOGLOBIN 14.6 g/dL (12.0-15.5); MEAN CORPUSCULAR HEMOGLOBIN 31.1 pg (27.0-33.4); MEAN CORPUSCULAR HGB CONC 34.2 g/dL (32.0-36.0); MEAN CORPUSCULAR VOLUME 91 fl (80-97); MONOCYTES % (AUTO) 6.2 % (3-13); PLATELET COUNT 293 10^3/uL (150-450); RED CELL DISTRIBUTION WIDTH 13.1 % (11.5-14.0); SEGMENTED NEUTROPHILS % (AUTO) 51.3 % (42-78); TOTAL CELLS COUNTED % (AUTO) 100 %; WHITE BLOOD COUNT 5.8 10^3/uL (4.0-10.5)
--- NOTE | 2018-10-30 08:54 | RADIOLOGY REPORT (SQ) ---
EXAM DESCRIPTION: KUB COMPLETED DATE/TIME: 10/30/2018 8:36 am REASON FOR STUDY: RUQ PAIN; ANKYLOSING OF THORACOLUMBAR REGION DECREASED ROM TO LOWER BACK E03.9 HY POTHYROIDISM, UNSPECIFIED E28.2 POLYCYSTIC OVARIAN SYNDROME R10.11 RIGHT UPPER QUADRANT PAIN COMPARISON: 05/16/2018. NUMBER OF VIEWS: One view. TECHNIQUE: Supine radiographic image of the abdomen acquired. LIMITATIONS: None. FINDINGS: BOWEL GAS PATTERN: Normal bowel gas pattern. No dilated loops. CALCIFICATIONS: No suspicious calcifications. SOFT TISSUES: No gross mass or suggestion of organomegaly. HARDWARE: None in the abdomen. BONES: No acute fracture. No worrisome bone lesions. OTHER: No other significant finding. IMPRESSION: NO RADIOGRAPHIC EVIDENCE FOR ACUTE ABDOMINAL DISEASE. TECHNICAL DOCUMENTATION: JOB ID: [id number] [employer]- All Rights Reserved Reading location - IP/workstation name: [email or web address]
--- NOTE | 2018-10-30 08:54 | RADIOLOGY REPORT (SQ) ---
EXAM DESCRIPTION: SACRUM AND COCCYX COMPLETED DATE/TIME: 10/30/2018 8:36 am REASON FOR STUDY: RUQ PAIN; ANKYLOSING OF THORACOLUMBAR REGION DECREASED ROM TO LOWER BACK E03.9 HY POTHYROIDISM, UNSPECIFIED E28.2 POLYCYSTIC OVARIAN SYNDROME R10.11 RIGHT UPPER QUADRANT PAIN COMPARISON: None. NUMBER OF VIEWS: Three views. TECHNIQUE: AP, lateral, and tilt views of the sacrum and coccyx. LIMITATIONS: None. FINDINGS: MINERALIZATION: Normal. BONES: No acute fracture or dislocation. No worrisome bone lesions. SOFT TISSUES: No soft tissue swelling. No foreign body. OTHER: No other significant finding. IMPRESSION: NEGATIVE STUDY OF THE SACRUM AND COCCYX. TECHNICAL DOCUMENTATION: JOB ID: [id number] [employer]- All Rights Reserved Reading location - IP/workstation name: [email or web address]
--- NOTE | 2018-10-30 08:55 | RADIOLOGY REPORT (SQ) ---
EXAM DESCRIPTION: LUMBAR SPINE 2 VIEWS COMPLETED DATE/TIME: 10/30/2018 8:36 am REASON FOR STUDY: RUQ PAIN; ANKYLOSING OF THORACOLUMBAR REGION DECREASED ROM TO LOWER BACK E03.9 HY POTHYROIDISM, UNSPECIFIED E28.2 POLYCYSTIC OVARIAN SYNDROME R10.11 RIGHT UPPER QUADRANT PAIN COMPARISON: 06/28/2017. NUMBER OF VIEWS: Two views. TECHNIQUE: AP and lateral radiographic images acquired of the lumbar spine. LIMITATIONS: None. FINDINGS: MINERALIZATION: Normal. SEGMENTATION: Normal. No transitional anatomy. ALIGNMENT: Normal. VERTEBRAE: Maintained height. No fracture or worrisome bone lesion. DISCS: Preserved height. No significant osteophytes or end plate irregularity. POSTERIOR ELEMENTS: Pedicles and facets are intact. No pars defect or posterior arch defects. HARDWARE: None in the spine. PARASPINAL SOFT TISSUES: Normal. PELVIS: Intact as visualized. No fractures or worrisome bone lesions. SI joints intact. OTHER: No other significant finding. IMPRESSION: NORMAL 2 VIEW LUMBAR SPINE. TECHNICAL DOCUMENTATION: JOB ID: [id number] [employer]- All Rights Reserved Reading location - IP/workstation name: [email or web address]
[2018-10-30 08:56] LABS: APPEARANCE,URINE CLEAR; BILIRUBIN,URINE NEGATIVE (NEGATIVE); COLOR,URINE YELLOW; GLUCOSE, URINE NEGATIVE (NEGATIVE); KETONES,URINE NEGATIVE (NEGATIVE); LEUKOCYTE ESTERASE,URINE NEGATIVE (NEGATIVE); NITRITE,URINE NEGATIVE (NEGATIVE); PROTEIN,URINE NEGATIVE (NEGATIVE); URINE SPECIFIC GRAVITY 1.025; UROBILINOGEN,URINE NEGATIVE mg/dL (<2.0)
[2018-10-30 09:27] LABS: ALANINE AMINOTRANSFERASE 32 U/L (9-52); ALBUMIN 4.3 g/dL (3.5-5.0); ALKALINE PHOSPHATASE 69 U/L (38-126); ANION GAP 6 (5-19); ASPARTATE AMINO TRANSFERASE 25 U/L (14-36); BILIRUBIN,DIRECT 0.2 mg/dL (0.0-0.4); BILIRUBIN,TOTAL 0.4 mg/dL (0.2-1.3); BLOOD UREA NITROGEN 20 mg/dL (7-20); CALCIUM 9.7 mg/dL (8.4-10.2); CARBON DIOXIDE 29 mmol/L (22-30); CHLORIDE 105 mmol/L (98-107); CHOLESTEROL 242.51 mg/dL (0-200); GLUCOSE 104 mg/dL (75-110); POTASSIUM 4.7 mmol/L (3.6-5.0); SODIUM 140.3 mmol/L (137-145); TOTAL PROTEIN 7.2 g/dL (6.3-8.2); TRIGLYCERIDES 140 mg/dL (<150)
[2018-10-30 09:30] LABS: FREE T3 5.99 pg/mL (2.77-5.27); FREE T4 (FREE THYROXINE) 0.73 ng/dL (0.78-2.19)
[2018-10-30 09:38] LABS: DIRECT LDL 165 mg/dL (<100)
[2018-10-30 09:42] LABS: ERYTHROCYTE SEDIMENTATION RATE 26 mm/hr (0-20)
[2018-10-30 09:44] LABS: THYROID STIMULATING HORMONE 2.69 uIU/mL (0.47-4.68)
== END ==
LOC: CCC 07:51
DX: E03.9 Hypothyroidism, unspecified (principal); E28.2 Polycystic ovarian syndrome; R10.11 Right upper quadrant pain; M45.5 Ankylosing spondylitis of thoracolumbar region
CPT/HCPCS: 36415; 72100; 72220; 74018; 80053; 80061; 81001; 83036; 84439; 84443; 84481; 85025; 85652

== ENCOUNTER 2018-12-10 13:18 | Emergency (ER) | payer SELFPAY ==
--- NOTE | 2018-12-10 14:08 | ER Document Report ---
ED Medical Screen (RME) - General Chief Complaint: Breast Problem Stated Complaint: BREAST PAIN Time Seen by Provider: 12/10/18 13:42 Primary Care Provider: ZBIGNIEW TAYLOR MD [Primary Care Provider] - Follow up as needed Mode of Arrival: Ambulatory Information source: Patient Notes: Patient is a 33-year-old female presented to the emergency department chief complaint of bilateral breast pain. She reports the pain is present bilaterally behind the area list. She denies any drainage. She is not sure if she could be as she states she has a history of PCOS. Patient does report a history of a grandfather with bilateral breast cancer. Exam: Breast exam deferred in triage. Lung sounds clear and equal bilaterally. I have greeted and performed a rapid initial assessment of this patient. A comprehensive ED assessment and evaluation of the patient, analysis of test results and completion of the medical decision making process will be conducted by additional ED providers. I have specifically instructed the patient or family members with the patient to immediately return to any nursing staff should anything change in the patient's condition or with their chief complaint. This medical record was dictated with voice recognizing software. There may be grammatical, syntax errors that are unintended. TRAVEL OUTSIDE OF THE [place] IN LAST 30 DAYS: No - Related Data Allergies/Adverse Reactions: No Known Allergies Allergy (Verified 12/10/18 13:23) Past Medical History - Social History Frequency of alcohol use: Occasional Drug Abuse: None Renal/ Medical History: Reports: Hx Ovarian Cysts. Denies: Hx Peritoneal Dialysis Skin Medical History: Reports Hx MRSA Psychiatric Medical History: Reports: Hx Anxiety, Hx Bipolar Disorder, Hx Depression Infectious Medical History: Reports: Hx MRSA - Immunizations Hx Diphtheria, Pertussis, Tetanus Vaccination: Yes - 2009 Physical Exam - Vital signs Vitals: Temp Pulse Resp BP Pulse Ox 98.6 F 77 16 142/71 H 99 12/10/18 13:31 12/10/18 13:31 12/10/18 13:31 12/10/18 13:31 12/10/18 13:31 Course - Vital Signs Vital signs: Temp Pulse Resp BP Pulse Ox 98.6 F 77 16 142/71 H 99 12/10/18 13:31 12/10/18 13:31 12/10/18 13:31 12/10/18 13:31 12/10/18 13:31 Doctor's Discharge - Discharge Referrals: ZBIGNIEW TAYLOR MD [Primary Care Provider] - Follow up as needed
[2018-12-10 14:33] LABS: APPEARANCE,URINE SLIGHTLY-CLOUDY; BILIRUBIN,URINE NEGATIVE (NEGATIVE); COLOR,URINE YELLOW; GLUCOSE, URINE NEGATIVE (NEGATIVE); KETONES,URINE NEGATIVE (NEGATIVE); LEUKOCYTE ESTERASE,URINE NEGATIVE (NEGATIVE); NITRITE,URINE NEGATIVE (NEGATIVE); PROTEIN,URINE NEGATIVE (NEGATIVE); UROBILINOGEN,URINE NEGATIVE mg/dL (<2.0)
--- NOTE | 2018-12-10 15:37 | ER Document Report ---
ED General - General Chief Complaint: Breast Problem Stated Complaint: BREAST PAIN Time Seen by Provider: 12/10/18 13:42 Primary Care Provider: ZBIGNIEW TAYLOR MD [Primary Care Provider] - Follow up as needed Mode of Arrival: Ambulatory TRAVEL OUTSIDE OF THE [place] IN LAST 30 DAYS: No - HPI Patient complains to provider of: breast pain Onset: Yesterday Onset/Duration: Gradual Quality of pain: Sharp Severity: Moderate Pain Level: 3 Notes: bilateral breast pain x2-3 days w/o redness to skin, fever, drainage or any known trauma she has pcos and notes h/o intermittent nipple sensitivity but this is worse she also reports intermittent dizziness since taking herself off of lamictal 3-4 weeks ago no arm/leg weakness or numbness no gait or vision changes - Related Data Allergies/Adverse Reactions: No Known Allergies Allergy (Verified 12/10/18 13:23) Past Medical History - General Information source: Patient - Social History Smoking Status: Current Every Day Smoker Frequency of alcohol use: Occasional Drug Abuse: None Family History: Arthritis, DM, Hypertension, Malignancy Patient has suicidal ideation: No Patient has homicidal ideation: No Renal/ Medical History: Reports: Hx Ovarian Cysts. Denies: Hx Peritoneal Dialysis Skin Medical History: Reports Hx MRSA Psychiatric Medical History: Reports: Hx Anxiety, Hx Bipolar Disorder, Hx Depres maggie Infectious Medical History: Reports: Hx MRSA - Immunizations Hx Diphtheria, Pertussis, Tetanus Vaccination: Yes - 2009 Review of Systems - Review of Systems Constitutional: No symptoms reported EENT: No symptoms reported Cardiovascular: Dizziness Respiratory: No symptoms reported Gastrointestinal: No symptoms reported Genitourinary: No symptoms reported Female Genitourinary: No symptoms reported Musculoskeletal: Other - breast pain bilaterally Skin: No symptoms reported Hematologic/Lymphatic: No symptoms reported Neurological/Psychological: No symptoms reported Physical Exam - Vital signs Vitals: Temp Pulse Resp BP Pulse Ox 98.6 F 77 16 142/71 H 99 12/10/18 13:31 12/10/18 13:31 12/10/18 13:31 12/10/18 13:31 12/10/18 13:31 Interpretation: Normal - General General appearance: Appears well, Alert - HEENT Head: Normocephalic, Atraumatic Eyes: Normal Pupils: PERRL - Respiratory Respiratory status: No respiratory distress Chest status: Nontender Breath sounds: Normal Chest palpation: Normal - Cardiovascular Rhythm: Regular Heart sounds: Normal auscultation Murmur: No - Abdominal Inspection: Normal Distension: No distension Bowel sounds: Normal Tenderness: Nontender Organomegaly: No organomegaly - Back Back: Normal, Nontender - Extremities General upper extremity: Normal inspection, Nontender, Normal color, Normal ROM, Normal temperature General lower extremity: Normal inspection, Nontender, Normal color, Normal ROM, Normal temperature, Normal weight bearing. No: Osman's sign - Neurological Neuro grossly intact: Yes Cognition: Normal Orientation: AAOx4 [place] Coma Scale Eye Opening: Spontaneous Otto Coma Scale Verbal: Oriented Clayton Coma Scale Motor: Obeys Commands Clayton Coma Scale Total: 15 Speech: Normal Motor strength normal: LUE, RUE, LLE, RLE Sensory: Normal - Psychological Associated symptoms: Normal affect, Normal mood - Skin Skin Temperature: Warm Skin Moisture: Dry Skin Color: Normal Notes: bilateral breast exam w/ roof slater in room w/o significant findings. no masses, skin changes or nipple discharge appreciated Course - Re-evaluation Re-evalutation: 12/10/18 15:36 seen for breast pain initially w/o significant findings patient then asks about dizziness will check basic labs but pt not or w/ uti 12/10/18 16:27 labs unremarkable patient requesting discharge to go to job interview will start meclizine for dizizness that sounds vertiginous by history - Vital Signs Vital signs: Temp Pulse Resp BP Pulse Ox 98.6 F 77 16 142/71 H 99 12/10/18 13:31 12/10/18 13:31 12/10/18 13:31 12/10/18 13:31 12/10/18 13:31 - Laboratory Result Diagrams: 12/10/18 15:23 12/10/18 15:23 Laboratory results interpreted by me: 12/10/18 14:10 Urine Blood SMALL H - EKG Interpretation by Ne EKG shows normal: Sinus rhythm Rate: Bradycardia - 58 [place]/QRS: No: Right axis deviation, Left axis deviation, RBBB, LBBB, IVCD, LAHB/LAFB, LPHB/LPFB, Bifasicular block Voltage: No: Increased voltage, Consistant with LVH, Decreased voltage, Th roughout, Limb leads P Waves: No: FLAQUITO, LAE, Absent, AV Dissociation, Other Heart block present: No: 1st Degree, Mobitz 1, Mobitz 2, CHB (3rd degree block) Discharge - Discharge Clinical Impression: Dizziness, Breast pain, Elevated blood pressure reading Condition: Stable Disposition: HOME, SELF-CARE Instructions: Breast Self-Examination ([facility]), Dizziness ([facility]) Additional Instructions: please establish a primary doctor or OBGYN for further care of your breast discomfort and consideration of outpatient mammogram or ultrasound imaging. Prescriptions: Meclizine HCl [Dramamine Less Drowsy] 25 mg PO TIDP PRN #10 tablet PRN Reason: Dizziness Referrals: ZBIGNIEW TAYLOR MD [Primary Care Provider] - Follow up as needed
[2018-12-10 15:46] LABS: ABSOLUTE EOSINOPHILS # (AUTO) 0.2 10^3/uL (0.0-0.6); ABSOLUTE MONOCYTES (AUTO) 0.5 10^3/uL (0.1-1.4); ABSOLUTE NEUT (AUTO) 4.4 10^3/uL (1.7-8.2); BASOPHILS % (AUTO) 0.4 % (0-2); EOSINOPHILS % (AUTO) 1.9 % (0-6); HEMATOCRIT 43.2 % (36.0-47.0); LYMPHOCYTES % (AUTO) 36.4 % (13-45); MEAN CORPUSCULAR HEMOGLOBIN 31.5 pg (27.0-33.4); MEAN CORPUSCULAR HGB CONC 34.7 g/dL (32.0-36.0); MEAN CORPUSCULAR VOLUME 91 fl (80-97); MONOCYTES % (AUTO) 6.8 % (3-13); PLATELET COUNT 291 10^3/uL (150-450); RED BLOOD COUNT 4.75 10^6/uL (3.72-5.28); RED CELL DISTRIBUTION WIDTH 13.2 % (11.5-14.0); SEGMENTED NEUTROPHILS % (AUTO) 54.5 % (42-78); TOTAL CELLS COUNTED % (AUTO) 100 %; WHITE BLOOD COUNT 8.1 10^3/uL (4.0-10.5)
[2018-12-10 16:10] LABS: ALBUMIN 4.5 g/dL (3.5-5.0); ALKALINE PHOSPHATASE 67 U/L (38-126); ANION GAP 10 (5-19); ASPARTATE AMINO TRANSFERASE 20 U/L (14-36); BILIRUBIN,DIRECT 0.2 mg/dL (0.0-0.4); BILIRUBIN,TOTAL 0.3 mg/dL (0.2-1.3); BLOOD UREA NITROGEN 16 mg/dL (7-20); CALCIUM 9.7 mg/dL (8.4-10.2); CARBON DIOXIDE 27 mmol/L (22-30); CHLORIDE 103 mmol/L (98-107); GLUCOSE 86 mg/dL (75-110); POTASSIUM 4.1 mmol/L (3.6-5.0); TOTAL PROTEIN 7.4 g/dL (6.3-8.2)
[2018-12-10 16:45] VITALS: BP 138/63
--- NOTE | 2018-12-10 18:34 | EKG REPORT ---
SEVERITY:- NORMAL ECG - SINUS RHYTHM : Confirmed by: Jhon Dunne MD 10-Dec-2018 18:33:41
== END 2018-12-10 16:45 | disposition home or self-care (01) ==
LOC: ER 13:18
DX: N64.4 Mastodynia (principal); R00.1 Bradycardia, unspecified; R03.0 Elevated blood-pressure reading, without diagnosis of hypertension; R42 Dizziness and giddiness; F31.9 Bipolar disorder, unspecified; T42.6X6A Underdosing of other antiepileptic and sedative-hypnotic drugs, initial encounter; Z91.128 Patient's intentional underdosing of medication regimen for other reason; Z91.14 Patient's other noncompliance with medication regimen; F17.200 Nicotine dependence, unspecified, uncomplicated
CPT/HCPCS: 36415; 80053; 81001; 81025; 85025; 93005; 93010; 99283

== ENCOUNTER 2019-02-10 18:24 | Emergency (ER) | payer SELFPAY ==
[2019-02-10 18:52] VITALS: BP 121/71
[2019-02-10] MEDS ORDERED: HYDROCODONE/ACETAMINOPHEN 5-325 MG (6 TAB/ER DISP) PO PRN (19:10)
--- NOTE | 2019-02-10 19:35 | ER Document Report ---
HPI - HPI Time Seen by Provider: 02/10/19 19:01 Pain Level: 2 Notes: Patient is an otherwise healthy 33-year-old female presenting to the emergency department with bilateral foot pain. She reports that she has flat feet. She states she just got a job working at [employer] and has been on her feet a lot. She reports that she wear shoes that have good support. She is not sure what else to do. She denies any specific injury to her feet. - CONSTITUTIONAL Constitutional: DENIES: Fever, Chills - EENT EENT: DENIES: Sore Throat, Ear Pain, Eye problems - NEURO Neurology: DENIES: Headache, Weakness, Vision blurred, Dizzinesss / Vertigo - CARDIOVASCULAR Cardiovascular: DENIES: Chest pain - RESPIRATORY Respiratory: DENIES: Trouble Breathing, Coughing - GASTROINTESTINAL Gastrointestinal: DENIES: Abdominal Pain, Black / Bloody Stools - URINARY Urinary: DENIES: Dysuria, Urgency, Frequency - REPRODUCTIVE Reproductive: DENIES: : - MUSCULOSKELETAL Musculoskeletal: REPORTS: Extremity pain - bilateral feet - DERM Skin Color: Normal Past Medical History - General Information source: Patient - Social History Smoking Status: Current Every Day Smoker Chew tobacco use (# tins/day): No Frequency of alcohol use: Occasional Drug Abuse: None Family History: Arthritis, DM, Hypertension, Malignancy Patient has suicidal ideation: No Patient has homicidal ideation: No Renal/ Medical History: Reports: Hx Ovarian Cysts. Denies: Hx Peritoneal Dialysis Skin Medical History: Reports Hx MRSA Psychiatric Medical History: Reports: Hx Anxiety, Hx Bipolar Disorder, Hx Depression Infectious Medical History: Reports: Hx MRSA - Immunizations Hx Diphtheria, Pertussis, Tetanus Vaccination: Yes - 2009 Vertical Provider Document - CONSTITUTIONAL Notes: PHYSICAL EXAMINATION: GENERAL: Well-appearing, well-nourished and in no acute distress. HEAD: Atraumatic, normocephalic. EYES: Pupils equal round extraocular movements intact, conjunctiva are normal. ENT: Nares patent NECK: Normal range of motion LUNGS: No respiratory distress Musculoskeletal: Normal range of motion to bilateral feet, no obvious erythema, ecchymosis, swelling or deformity noted. Strong dorsalis pedis pulses bilaterally. Cap refill less than 3 seconds bilaterally. NEUROLOGICAL: Normal speech, normal gait. PSYCH: Normal mood, normal affect. SKIN: Warm, Dry, normal turgor, no rashes or lesions noted. - INFECTION CONTROL TRAVEL OUTSIDE OF THE [place] IN LAST 30 DAYS: No Course - Re-evaluation Re-evalutation: We will give patient information for the ear pull machine operator here in town, and encouraged her to buy some insoles specifically for flat feet. Encouraged her to continue taking ibuprofen for the pain. Patient verbalizes understanding and agreement with this plan. No indication for imaging as patient has not had any recent trauma. The patient's emergency department workup and current diagnosis were explained to the patient and or family. Follow-up instructions were provided. Medications if prescribed were discussed. Instructions for when to return to the emergency department including specific worrisome symptoms were discussed with the patient and/or family. - Vital Signs Vital signs: Temp Pulse Resp BP Pulse Ox 98.6 F 92 16 121/71 98 02/10/19 18:50 02/10/19 18:50 02/10/19 18:50 02/10/19 18:50 02/10/19 18:50 Discharge - Discharge Clinical Impression: Bilateral foot pain Condition: Stable Disposition: HOME, SELF-CARE Additional Instructions: Please follow-up with a ear pull machine operator. Please look into purchasing some insoles for your shoes that are specifically made for people with flat feet. Take the medication at night to help you sleep. Take ibuprofen 600 mg every 6 hours. [facility] Referrals: LULU GUAJARDO DPM [ACTIVE STAFF] - Follow up as needed
== END 2019-02-10 19:44 | disposition home or self-care (01) ==
LOC: ER 18:24
DX: M79.671 Pain in right foot (principal); M79.672 Pain in left foot; F17.200 Nicotine dependence, unspecified, uncomplicated
CPT/HCPCS: 99283